=== PATIENT | male | born 1985 | race African-American/Black ===

== ENCOUNTER 2018-09-23 17:14 | Inpatient (IN) | payer MEDICAID, OTHER ==
[2018-09-23] MEDS ORDERED: ACETAMINOPHEN 325 MG TABLET PO ONE (18:28)
[2018-09-23] MEDS ORDERED: RINGERS SOLUTION,LACTATED 1,000 ML IV ONE ×2 (18:29→22:36)
--- NOTE | 2018-09-23 18:50 | RADIOLOGY REPORT (SQ) ---
EXAM DESCRIPTION: CHEST 2 VIEWS COMPLETED DATE/TIME: 09/23/2018 6:38 pm REASON FOR STUDY: fever, cough COMPARISON: None. EXAM PARAMETERS: NUMBER OF VIEWS: two views TECHNIQUE: Digital Frontal and Lateral radiographic views of the chest acquired. RADIATION DOSE: NA LIMITATIONS: none FINDINGS: LUNGS AND PLEURA: No opacities, masses or pneumothorax. No pleural effusion. MEDIASTINUM AND HILAR STRUCTURES: No masses or contour abnormalities. HEART AND VASCULAR STRUCTURES: Heart normal size. No evidence for failure. BONES: No acute findings. HARDWARE: None in the chest. OTHER: No other significant finding. IMPRESSION: NO ACUTE RADIOGRAPHIC FINDING IN THE CHEST. TECHNICAL DOCUMENTATION: JOB ID: [id number] [employer]- All Rights Reserved Reading location - IP/workstation name: [email or web address]
[2018-09-23] MEDS ORDERED: AMPICILLIN SOD/SULBACTAM 3 GM VIAL IV ONE (19:05)
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
[2018-09-23 19:27] LABS: VENOUS BLOOD BASE EXCESS 3.9 mmol/L; VENOUS BLOOD HCO3 29.2 mmol/L (20-32); VENOUS BLOOD PCO2 46.4 mmHg (35-63); VENOUS BLOOD PH 7.42 (7.30-7.42)
[2018-09-23 19:45] LABS: HEMATOCRIT 40.8 % (37.9-51.0); MEAN CORPUSCULAR HEMOGLOBIN 31.6 pg (27.0-33.4); MEAN CORPUSCULAR HGB CONC 34.3 g/dL (32.0-36.0); MEAN CORPUSCULAR VOLUME 92 fl (80-97); PLATELET COUNT 209 10^3/uL (150-450); RED BLOOD COUNT 4.43 10^6/uL (4.35-5.55); RED CELL DISTRIBUTION WIDTH 12.7 % (11.5-14.0); WHITE BLOOD COUNT 16.3 10^3/uL (4.0-10.5)
[2018-09-23 19:46] LABS: ALANINE AMINOTRANSFERASE 23 U/L (21-72); ALBUMIN 4.5 g/dL (3.5-5.0); ALKALINE PHOSPHATASE 75 U/L (38-126); ANION GAP 14 (5-19); ASPARTATE AMINO TRANSFERASE 20 U/L (17-59); BILIRUBIN,DIRECT 0.3 mg/dL (0.0-0.4); BILIRUBIN,TOTAL 1.4 mg/dL (0.2-1.3); BLOOD UREA NITROGEN 8 mg/dL (7-20); CALCIUM 9.9 mg/dL (8.4-10.2); CARBON DIOXIDE 29 mmol/L (22-30); CHLORIDE 97 mmol/L (98-107); GLUCOSE 251 mg/dL (75-110); POTASSIUM 4.2 mmol/L (3.6-5.0); TOTAL PROTEIN 7.2 g/dL (6.3-8.2)
[2018-09-23 20:06] LABS: ABSOLUTE LYMPHOCYTES# (MANUAL) 0.2 10^3/uL (0.5-4.7); ABSOLUTE MONOCYTES # (MANUAL) 1.1 10^3/uL (0.1-1.4); BAND NEUTROPHILS % (MANUAL) 3 % (3-5); BASOPHILS % (MANUAL) 0 % (0-2); EOSINOPHILS % (MANUAL) 0 % (0-6); LYMPHOCYTES % (MANUAL) 1 % (13-45); MONOCYTES % (MANUAL) 7 % (3-13); RBC MORPHOLOGY COMMENT NORMO-CYTIC/CHROMIC; SEGMENTED NEUTROPHILS % (MAN) 89 % (42-78); TOTAL CELLS COUNTED 100
[2018-09-23 20:07] LABS: PLATELET COMMENT ADEQUATE
--- NOTE | 2018-09-23 21:32 | RADIOLOGY REPORT (SQ) ---
EXAM DESCRIPTION: CT of the facial bones without IV contrast. CLINICAL HISTORY: 33 years Male Severe nasal swelling, fever COMPARISON: None TECHNIQUE: Axial images with IV contrast. Sagittal coronal reconstruction. 100 mL of Omnipaque 350 administered. This exam was performed according to our departmental dose-optimization program, which includes automated exposure control, adjustment of the mA and/or kV according to patient size and/or use of iterative reconstruction technique.. FINDINGS: There is minimal irregularity of the upper aspect of the right nasal bone more likely due to suture and not fracture. There is no obvious the destructive bone changes. CT does not evaluate well the nasal cartilage. There is diffuse soft tissue swelling peripheral as well as deep to the nasal bones and the nasal cartilage... The study is performed with IV contrast. There are relative peripheral areas of enhancement and central areas of lower density. Difficult to determine if the central low density represents pus or simple fluid/ mucus. There is moderate soft tissue swelling in the midline along the nasal septum. The nasal turbinates are not significantly enlarged. However there is some narrowing of the nasal cavity secondary to the midline soft tissue swelling. There is mild anterior ethmoid mucosal thickening. Posterior ethmoids are unremarkable. Minimal mucosal thickening in the maxillary and sphenoid sinuses. Frontal sinuses are unremarkable. Evaluation of the nasopharynx demonstrates nonspecific enlargement of the adenoids. Tonsils are not significantly enlarged incidental finding of several calcifications/stones in the left tonsil. Visualized brain tissue is unremarkable. The orbits are unremarkable. IMPRESSION: 1. Prominent soft tissue swelling peripheral and deep to the nasal bones and the nasal cartilage. Study performed with IV contrast and includes area of enhancement possibly normal or inflamed cartilage and areas of low density possibly pus or simple fluid/mucus. Soft tissue swelling extends in the midline into the nasal cavity. Most prominent anteriorly but causes soft tissue thickening adjacent to the nasal septum. The nasal turbinates are not enlarged. 2. Relative mild sinus disease. No obvious destructive bone changes. 3. Mild prominence of the adenoids.
[2018-09-23] MEDS ORDERED: VANCOMYCIN HCL INJ 1000 MG VIAL IV ONE (22:34)
[2018-09-23] MEDS ORDERED: DEXAMETHASONE SOD PHOS INJ 10 MG/1 ML VIAL IV ONE (22:36)
[2018-09-23] MEDS ORDERED: MUPIROCIN 2% OINTMENT 22 GM TP ONE (22:37)
[2018-09-23] MEDS ORDERED: KETOROLAC TROMETHAMINE INJ/PF 30 MG/1 ML SDV IV ONE (22:39)
[2018-09-24] MEDS ORDERED: DEXTROSE 40% GEL 15 GM TUBE PO PRN ×2 (00:55)
[2018-09-24] MEDS ORDERED: MAG HYDROX/AL HYDROX/SIMETH SUSP 30 ML UDCUP PO PRN (00:55)
[2018-09-24] MEDS ORDERED: ACETAMINOPHEN 650 MG SUPP.RECT PR PRN (00:55)
[2018-09-24] MEDS ORDERED: MAGNESIUM HYDROXIDE SUSP 30 ML UDCUP PO PRN (00:55)
[2018-09-24] MEDS ORDERED: GLUCAGON,HUMAN RECOMB 1 MG INJ SUBCUT PRN (00:55)
[2018-09-24] MEDS ORDERED: ONDANSETRON HCL INJ/PF 4 MG/2 ML SDV IV PRN (00:55)
[2018-09-24] MEDS ORDERED: DEXTROSE 50%-WATER 25 GM/50 ML DISP.SYRIN IV PRN ×2 (00:55)
[2018-09-24] MEDS ORDERED: MORPHINE SULFATE 10 MG/ML INJ IV PRN ×6 (01:01→17:26)
[2018-09-24] MEDS ORDERED: ACETAMINOPHEN 325 MG TABLET PO PRN (01:01)
[2018-09-24] MEDS ORDERED: HYDRALAZINE HCL INJ/PF 20 MG/1 ML SDV IV PRN (01:01)
[2018-09-24] MEDS ORDERED: MEROPENEM 1 GM VIAL IV PRN (01:04)
[2018-09-24] MEDS ORDERED: VANCOMYCIN HCL INJ 1000 MG VIAL IV PRN (01:20)
--- NOTE | 2018-09-24 02:33 | ADVANCED CARE ---
- Diagnosis (1) Nose cellulitis Diagnosis Current: Yes (2) SIRS (systemic inflammatory response syndrome) Diagnosis Current: Yes (3) Elevated temperature due to infection Diagnosis Current: Yes (4) Elevated lactic acid level Diagnosis Current: Yes (5) Facial pain, acute Diagnosis Current: Yes Attendance: The patient and myself Resuscitation Status: Full Code Discussion: Patient desires to continue being a full code for his resuscitation status in the event of any cardiac or pulmonary arrest that may occur during his hospital course. He has named Mercedes Morrison as his designated surrogate medical decision- maker. Care Planning Goals: 1. Patient remain a full CODE STATUS throughout this hospital course. 2. Mercedes Morrison is his designated surrogate medical decision maker. Document(s) Completed: Following entries will be made into the patient's permanent medical record and into his current medical record and orders via EMR entry: 1. Patient remain a full CODE STATUS throughout this hospital course. 2. Mercedes Morrison is his designated surrogate medical decision maker. Time Spent: 5 minutes
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
[2018-09-24] MEDS ORDERED: MEROPENEM 1 GM VIAL ONE (03:22)
[2018-09-24] MEDS: MEROPENEM 1 GM in NORMAL SALINE 50 ML IV SCH ×2 (03:45→09:52)
[2018-09-24] MEDS: DEXAMETHASONE SOD PHOS INJ 10 MG/1 ML VIAL IV SCH ×3 (03:46→11:20)
[2018-09-24] MEDS ORDERED: VANCOMYCIN HCL 1,000 MG in DEXTROSE 5%-WATER 250 ML IV ONE (06:00)
[2018-09-24] MEDS ORDERED: VANCOMYCIN HCL INJ 1000 MG VIAL ONE (06:07)
[2018-09-24] MEDS: HEPARIN SOD (PORCINE) 5,000 UNIT/ML 1 ML VIAL SUBCUT SCH ×3 (06:26→21:14)
[2018-09-24] MEDS: DOCUSATE SODIUM 100 MG CAPSULE PO SCH ×2 (09:23→17:31)
[2018-09-24] MEDS: FAMOTIDINE INJ/PF 20 MG/2 ML SDV IV SCH ×2 (09:51→21:14)
[2018-09-24] MEDS ORDERED: VANCOMYCIN HCL INJ 1000 MG VIAL IV SCH (10:00)
[2018-09-24] MEDS: MUPIROCIN 2% OINTMENT 22 GM TP SCH ×3 (10:29→17:05)
[2018-09-24] MEDS ORDERED: LIDOCAINE 2%/EPINEPHRINE INJ 1.7 ML CARTRIDGE ONE (11:01)
[2018-09-24] MEDS ORDERED: BUPIVACAINE HCL 0.5%/EPI 1:200000 INJ 1.8 ML CARTRIDGE ONE ×2 (11:01→13:18)
[2018-09-24] MEDS ORDERED: OXYMETAZOLINE HCL 0.05% NASAL SPRAY 15 ML BOTTLE ONE (11:01)
[2018-09-24] MEDS: AMPICILLIN SODIUM/SULBACTAM NA 3 GM in NORMAL SALINE 100 ML IV SCH ×3 (11:21→23:31)
[2018-09-24] MEDS ORDERED: SUCCINYLCHOLINE CHLORIDE INJ 200 MG/10 ML VIAL ONE (11:35)
[2018-09-24] MEDS ORDERED: VECURONIUM BROMIDE INJ 10 MG VIAL IV ONE (11:35)
[2018-09-24] MEDS ORDERED: GLYCOPYRROLATE 1 MG/5 ML VIAL ONE (11:35)
[2018-09-24] MEDS ORDERED: ONDANSETRON HCL INJ/PF 4 MG/2 ML SDV ONE (11:35)
[2018-09-24] MEDS ORDERED: LIDOCAINE 2% INJ-PF (100 MG/5 ML) SYRINGE ONE (11:54)
[2018-09-24] MEDS ORDERED: MIDAZOLAM 2 MG/2 ML INJ ONE (11:54)
[2018-09-24] MEDS ORDERED: PROPOFOL INJ 200 MG/20 ML VIAL IV ONE ×2 (11:54→15:02)
[2018-09-24] MEDS ORDERED: KETAMINE HCL INJ 500 MG/10 ML VIAL ONE (11:54)
[2018-09-24] MEDS ORDERED: FENTANYL CITRATE INJ/PF 250 MCG/5 ML AMPULE ONE (11:54)
[2018-09-24] MEDS ORDERED: AMPICILLIN SODIUM/SULBACTAM NA 2 GM in NORMAL SALINE 100 ML IV SCH (12:00)
[2018-09-24] MEDS ORDERED: AMPICILLIN SODIUM/SULBACTAM NA 3 GM in NORMAL SALINE 100 ML IV SCH (12:00)
[2018-09-24] MEDS ORDERED: BACITRACIN ZINC OINTMENT 15 GM ONE (12:40)
[2018-09-24] MEDS ORDERED: BACITRACIN INJ 50,000 UNIT VIAL ONE (12:40)
[2018-09-24] MEDS: VANCOMYCIN HCL 1,000 MG in DEXTROSE 5%-WATER 250 ML IV SCH ×2 (13:06→21:15)
[2018-09-24] MEDS ORDERED: DIPHENHYDRAMINE HCL 50 MG/ML VIAL IV PRN (14:13)
[2018-09-24] MEDS ORDERED: FENTANYL CITRATE INJ/PF 100 MCG/2 ML AMPUL IV PRN ×3 (14:13)
[2018-09-24] MEDS ORDERED: PROMETHAZINE HCL INJ 25 MG/1 ML VIAL IV PRN ×2 (14:13)
[2018-09-24] MEDS ORDERED: MEPERIDINE HCL/PF INJ 25 MG/1 ML DISP.SYRIN IV PRN (14:13)
[2018-09-24] MEDS ORDERED: FENTANYL CITRATE INJ/PF 100 MCG/2 ML AMPUL ONE (15:03)
[2018-09-24] MEDS: PHENOL/SODIUM PHENOLATE 100 SPRAY/177 ML BOTTLE PO PRN ×2 (16:03→17:37)
[2018-09-24] MEDS: RINGERS SOLUTION,LACTATED 1,000 ML IV PRN (16:55)
[2018-09-24] MEDS ORDERED: OXYCODONE-ACETAMINOPHEN 5-325 MG TABLET PO PRN (17:25)
--- NOTE | 2018-09-24 17:28 | Progress Note Acknowledgement ---
Progress Note Acknowledgement Progess Note Acknowledgement: I, the undersigned member of the medical staff with appropriate privileges and with supervisory authority over Nereyda Hernandez, a [facility] practice allied health professional, acknowledge that I have reviewed the progress notes entered on this patient, and in my professional judgment believe that the assessment made and/or any care evidenced was appropriate
--- NOTE | 2018-09-24 17:28 | PDOC PROGRESS REPORT ---
Subjective Progress Note for:: 09/24/18 Subjective:: The patient is a 33-year-old male with past medical history significant only for tobacco dependency who was admitted 09/23/18 for no cellulitis with potential abscess formation noted on CT scan. ENT has been consulted; plans for scope and possible I&D today. Patient was seen on morning rounds. He is found resting in bed comfortably on room air. He reports that his facial swelling and discomfort have decreased somewhat today. He does endorse a sore throat but without difficulty swallowing or speaking. He further denies fever, chills, chest pain, palpitations, dyspnea, cough, abdominal pain, nausea vomiting and diarrhea. He is somewhat anxious regarding planned procedure today but otherwise has no questions or concerns. No concerns per nursing. Reason For Visit: FACIAL CELLULITIS Physical Exam Vital Signs: Temp Pulse Resp BP Pulse Ox 99.6 F 74 18 137/73 H 95 09/24/18 02:14 09/24/18 02:14 09/24/18 02:14 09/24/18 02:14 09/24/18 02:14 Intake & Output 09/23/18 09/24/18 09/25/18 06:59 06:59 06:59 Intake Total 1050 Output Total 1550 Balance -500 Weight 74.7 kg General appearance: PRESENT: no acute distress, cooperative, well-developed, well-nourished Head exam: PRESENT: atraumatic, normocephalic, other - Mild erythema and +1 edema of the nose and perinasal area of the face. (+) tenderness to palpation. Nares are partially obstructed secondary to edema; though remain patent Eye exam: PRESENT: conjunctiva pink, EOMI, PERRLA. ABSENT: scleral icterus Ear exam: PRESENT: normal external ear exam Mouth exam: PRESENT: moist, tongue midline Throat exam: PRESENT: post pharyngeal erythema Neck exam: ABSENT: carotid bruit, JVD, lymphadenopathy, thyromegaly Respiratory exam: PRESENT: clear to auscultation saida. ABSENT: rales, rhonchi, wheezes Cardiovascular exam: PRESENT: RRR. ABSENT: diastolic murmur, rubs, systolic murmur Pulses: PRESENT: normal dorsalis pedis pul Vascular exam: PRESENT: normal capillary refill GI/Abdominal exam: PRESENT: normal bowel sounds, soft. ABSENT: distended, guarding, mass, organolmegaly, rebound, tenderness Rectal exam: PRESENT: deferred Extremities exam: PRESENT: full ROM. ABSENT: calf tenderness, clubbing, pedal edema Neurological exam: PRESENT: alert, awake, oriented to person, oriented to place, oriented to time, oriented to situation, CN II-XII grossly intact. ABSENT: motor sensory deficit Psychiatric exam: PRESENT: appropriate affect, normal mood. ABSENT: homicidal ideation, suicidal ideation Skin exam: PRESENT: dry, intact, warm. ABSENT: cyanosis, rash Results Laboratory Results: 09/23/18 19:05 09/23/18 19:05 09/23/18 09/23/18 09/23/18 19:05 19:05 19:05 WBC 16.3 H RBC 4.43 Hgb 14.0 Hct 40.8 MCV 92 MCH 31.6 MCHC 34.3 RDW 12.7 Plt Count 209 Seg Neutrophils % Not Reportable Lymphocytes % Not Reportable Monocytes % Not Reportable Eosinophils % Not Reportable Basophils % Not Reportable Absolute Neutrophils Not Reportable Absolute Lymphocytes Not Reportable Absolute Monocytes Not Reportable Absolute Eosinophils Not Reportable Absolute Basophils Not Reportable VBG pH VBG pCO2 VBG HCO3 VBG Base Excess Sodium 139.7 Potassium 4.2 Chloride 97 L Carbon Dioxide 29 Anion Gap 14 BUN 8 Creatinine 0.78 Est GFR ( Amer) > 60 Est GFR (Non-Af Amer) > 60 Glucose 251 H Lactic Acid 2.7 H Calcium 9.9 Total Bilirubin 1.4 H AST 20 ALT 23 Alkaline Phosphatase 75 Total Protein 7.2 Albumin 4.5 09/23/18 09/24/18 09/24/18 19:05 02:45 06:54 WBC RBC Hgb Hct MCV MCH MCHC RDW Plt Count Seg Neutrophils % Lymphocytes % Monocytes % Eosinophils % Basophils % Absolute Neutrophils Absolute Lymphocytes Absolute Monocytes Absolute Eosinophils Absolute Basophils VBG pH 7.42 VBG pCO2 46.4 VBG HCO3 29.2 VBG Base Excess 3.9 Sodium Potassium Chloride Carbon Dioxide Anion Gap BUN Creatinine Est GFR ( Amer) Est GFR (Non-Af Amer) Glucose Lactic Acid 1.9 1.3 Calcium Total Bilirubin AST ALT Alkaline Phosphatase Total Protein Albumin Impressions: Chest X-Ray 09/23/18 18:28 IMPRESSION: NO ACUTE RADIOGRAPHIC FINDING IN THE CHEST. Facial Bones CT 09/23/18 19:00 IMPRESSION: 1. Prominent soft tissue swelling peripheral and deep to the nasal bones and the nasal cartilage. Study performed with IV contrast and includes area of enhancement possibly normal or inflamed cartilage and areas of low density possibly pus or simple fluid/mucus. Soft tissue swelling extends in the midline into the nasal cavity. Most prominent anteriorly but causes soft tissue thickening adjacent to the nasal septum. The nasal turbinates are not enlarged. 2. Relative mild sinus disease. No obvious destructive bone changes. 3. Mild prominence of the adenoids. Assessment and Plan - Diagnosis (1) Nose cellulitis Is this a current diagnosis for this admission?: Yes Plan: Blood cultures are positive for gram-positive cocci (2/4 bottles). Wound cultures are pending. Patient is admitted to the medical floor. He has been empirically placed on IV vancomycin and Unasyn. ENT is consulted; plans for I&D today. Analgesics as needed. (2) Bacteremia Is this a current diagnosis for this admission?: Yes Plan: Blood cultures are positive for gram-positive cocci in 2 of 4 bottles. We will repeat blood cultures tomorrow with a.m. lab work. Wound cultures are pending. Continue IV vancomycin and Unasyn. (3) Hypertension Is this a current diagnosis for this admission?: Yes Plan: Patient denies known history of hypertension; found to have blood pressures of 148/85. Possibly related to pain. Analgesics as needed. Continue to monitor for persistently elevated blood pressures indicating need for antihypertensive therapy. (4) Facial pain, acute Is this a current diagnosis for this admission?: Yes Plan: Tylenol or Motrin and oxycodone 5/325 as needed for pain. IV morphine for breakthrough pain. (5) Sepsis Qualifiers: Sepsis type: sepsis due to unspecified organism Qualified Code(s): A41.9 - Sepsis, unspecified organism Is this a current diagnosis for this admission?: Yes Plan: Resolved. Sepsis due to gram-positive cocci, present on admission, evidenced by Leukocytosis, elevated lactic acid, elevated bilirubin, fever, tachycardia, and nasal cellulitis with potential abscesses noted on facial CT. Cultures and antibiotics as above. - Time Time Spent with patient: 25-34 minutes Medications reviewed and adjusted accordingly: Yes Anticipated discharge: Home Within: within 72 hours - pending blood culture results
[2018-09-24] MEDS: OXYCODONE-ACETAMINOPHEN 5-325 MG TABLET PO PRN (20:28)
[2018-09-25] MEDS: OXYCODONE-ACETAMINOPHEN 5-325 MG TABLET PO PRN ×4 (04:10→21:24)
[2018-09-25] MEDS: AMPICILLIN SODIUM/SULBACTAM NA 3 GM in NORMAL SALINE 100 ML IV SCH ×4 (05:16→23:16)
[2018-09-25] MEDS: HEPARIN SOD (PORCINE) 5,000 UNIT/ML 1 ML VIAL SUBCUT SCH ×3 (05:18→21:29)
[2018-09-25] MEDS: VANCOMYCIN HCL 1,000 MG in DEXTROSE 5%-WATER 250 ML IV SCH (06:36)
[2018-09-25 07:01] LABS: HEMATOCRIT 38.6 % (37.9-51.0); HEMOGLOBIN 13.2 g/dL (13.5-17.0); MEAN CORPUSCULAR HEMOGLOBIN 31.6 pg (27.0-33.4); MEAN CORPUSCULAR HGB CONC 34.2 g/dL (32.0-36.0); MEAN CORPUSCULAR VOLUME 92 fl (80-97); PLATELET COUNT 264 10^3/uL (150-450); RED BLOOD COUNT 4.17 10^6/uL (4.35-5.55); RED CELL DISTRIBUTION WIDTH 12.7 % (11.5-14.0); WHITE BLOOD COUNT 16.3 10^3/uL (4.0-10.5)
[2018-09-25 07:21] LABS: ANION GAP 15 (5-19); BLOOD UREA NITROGEN 18 mg/dL (7-20); CALCIUM 9.8 mg/dL (8.4-10.2); CARBON DIOXIDE 25 mmol/L (22-30); CHLORIDE 99 mmol/L (98-107); GLUCOSE 155 mg/dL (75-110); POTASSIUM 4.3 mmol/L (3.6-5.0)
[2018-09-25 07:25] LABS: VANCOMYCIN,TROUGH 6.4 ug/mL (5.0-20.0)
[2018-09-25] MEDS: FAMOTIDINE INJ/PF 20 MG/2 ML SDV IV SCH ×2 (09:26→21:23)
[2018-09-25] MEDS: RINGERS SOLUTION,LACTATED 1,000 ML IV PRN (09:26)
[2018-09-25] MEDS: DOCUSATE SODIUM 100 MG CAPSULE PO SCH ×2 (09:27→17:12)
[2018-09-25] MEDS: MUPIROCIN 2% OINTMENT 22 GM TP SCH ×2 (09:30→17:12)
[2018-09-25] MEDS: VANCOMYCIN HCL 1,500 MG in DEXTROSE 5%-WATER 250 ML IV SCH ×2 (14:53→21:25)
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
[2018-09-25] MEDS: AMLODIPINE BESYLATE 5 MG TABLET PO SCH (23:16)
[2018-09-26] MEDS: OXYCODONE-ACETAMINOPHEN 5-325 MG TABLET PO PRN ×4 (02:28→17:52)
[2018-09-26 05:07] LABS: HEMATOCRIT 37.7 % (37.9-51.0); HEMOGLOBIN 12.9 g/dL (13.5-17.0); MEAN CORPUSCULAR HEMOGLOBIN 31.6 pg (27.0-33.4); MEAN CORPUSCULAR HGB CONC 34.2 g/dL (32.0-36.0); MEAN CORPUSCULAR VOLUME 93 fl (80-97); PLATELET COUNT 255 10^3/uL (150-450); RED BLOOD COUNT 4.07 10^6/uL (4.35-5.55); RED CELL DISTRIBUTION WIDTH 12.8 % (11.5-14.0); WHITE BLOOD COUNT 10.1 10^3/uL (4.0-10.5)
[2018-09-26] MEDS: AMPICILLIN SODIUM/SULBACTAM NA 3 GM in NORMAL SALINE 100 ML IV SCH ×3 (05:16→17:52)
[2018-09-26] MEDS: HEPARIN SOD (PORCINE) 5,000 UNIT/ML 1 ML VIAL SUBCUT SCH ×3 (05:20→21:33)
[2018-09-26] MEDS: VANCOMYCIN HCL 1,500 MG in DEXTROSE 5%-WATER 250 ML IV SCH ×3 (06:31→21:33)
[2018-09-26] MEDS: DOCUSATE SODIUM 100 MG CAPSULE PO SCH ×2 (09:39→17:51)
[2018-09-26] MEDS: FAMOTIDINE INJ/PF 20 MG/2 ML SDV IV SCH ×2 (09:39→21:33)
[2018-09-26] MEDS: MUPIROCIN 2% OINTMENT 22 GM TP SCH ×2 (09:39→17:53)
[2018-09-26] MEDS: IBUPROFEN 800 MG TABLET PO PRN ×2 (09:48→17:58)
[2018-09-26 14:21] LABS: VANCOMYCIN,TROUGH 14.2 ug/mL (5.0-20.0)
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
[2018-09-26] MEDS: AMLODIPINE BESYLATE 5 MG TABLET PO SCH (21:33)
[2018-09-27] MEDS: OXYCODONE-ACETAMINOPHEN 5-325 MG TABLET PO PRN ×4 (00:25→17:30)
[2018-09-27] MEDS: IBUPROFEN 800 MG TABLET PO PRN ×3 (03:31→20:01)
[2018-09-27] MEDS: VANCOMYCIN HCL 1,500 MG in DEXTROSE 5%-WATER 250 ML IV SCH ×3 (06:16→22:06)
[2018-09-27] MEDS: HEPARIN SOD (PORCINE) 5,000 UNIT/ML 1 ML VIAL SUBCUT SCH ×3 (06:16→22:06)
[2018-09-27] MEDS: MUPIROCIN 2% OINTMENT 22 GM TP SCH ×2 (10:29→17:30)
[2018-09-27] MEDS: FAMOTIDINE INJ/PF 20 MG/2 ML SDV IV SCH ×2 (10:29→22:06)
[2018-09-27] MEDS: DOCUSATE SODIUM 100 MG CAPSULE PO SCH ×2 (10:29→17:25)
--- NOTE | 2018-09-27 17:38 | Progress Note ---
Provider Note Provider Note: ID Telephone Consultation Note Pt not seen or examined. Asked to review patient's chart and spoke briefly with Nereyda Hernandez NP, regarding the patient. Mr. Hare is a 33 year old admitted on 09/23 with 3 day history of progressively worsening facial swelling, particularly involving his nose, with local pain, er ythema and increased warmth developing with associated fever and chills. This developed following an ulcer to his L nasal mucosa that he picked at. On exam he was febrile to 101.7 F and noted to have erythema and edema of the nose and perinasal aspects of the face with tenderness to palpation, no murmur, and no other skin lesios noted. CT of the facial bones showed prominent swelling peripheral and deep to the nasal bones and cartilage most prominent anteriorly. CXR did not show an acute radiographic finding. His blood cultures on admission grew MRSA in both sets, as did cultures from the nose. He was seen by ENT and has had debridement. Repeat blood cultures on 09/25 have no growth x 48h. The patient defervesced after admission and has had no recurrent fever. Impression/Recommendations MRSA bacteremia - To have uncomplicated Staph aureus bacteremia, the patient would need to meet all of the following criteria No persistent bacteremia or fever (defervesce and negative repeat blood cultures within 72 and 96h, respectively) No evidence of metastatic infection or endocarditis No implanted prostheses (e.g. arthroplasty, heart valve) Generally, a shorter course might be more appropriate in the setting of an identifiable and removable source of bacteremia, such as an infected IV line, and if there is nosocomial rather than community onset bacteremia. - The patient appears to be a candidate for two weeks of treatment, starting from the date of negative blood cx on 09/25 (anticipated end date 10/09), assuming the TTE is negative and good quality study and there are no other complications that develop that suggest metastatic infection (e.g. new onset of ocular palsy to suggest cavernous sinus septic thrombosis for example, due to retrograde seeding) - The standard of care for treatment of MRSA bacteremia has generally involved either IV vancomycin (dose with assistance of a clinical pharmacist to achieve goal troughs of 15-20) or IV daptomycin (500 mg daily based on his weight) but if PICC line placement is not an option, consider linezolid 600 mg PO BID. Bactrim or clindamycin could be considered if there is no other choice, but clindamycin has been associated with high risk of treatment failure or relapse if used for Staph aureus endovascular infection or bacteremia, and comparisons of vancomycin versus Bactrim for treatment of serious MRSA infection could not show non-inferiority of Bactrim with greater differences seen in use for bacteremia. I do not think clindamycin or Bactrim are good options if vancomycin, daptomycin or linezolid can be used instead. Kendall Garcia MD [facility] pager [phone]
[2018-09-27] MEDS: BUTALB/ACETAMINOPHEN/CAFFEINE 1 TAB EACH PO PRN (20:57)
[2018-09-27] MEDS ORDERED: OXYCODONE-ACETAMINOPHEN 5-325 MG TABLET PO PRN (21:35)
--- NOTE | 2018-09-27 21:35 | PDOC PROGRESS REPORT ---
Subjective Progress Note for:: 09/27/18 Subjective:: The patient is a 33-year-old male with past medical history significant only for tobacco dependency who was admitted 09/23/18 for no cellulitis with potential abscess formation noted on CT scan. ENT has been consulted; POD #2 I&D with surgical drains in place. Patient was seen on afternoon rounds. He was found resting in bed comfortably on room air. He reports continued nasal/facial tenderness, though significantly improved and well controlled on current pain regiment. Edema has resolved. He does report headache last night that was no responsive to tylenol. He denies fever, chills, body aches, chest pain, palpitations, dyspnea, orthopnea, abdominal pain, nausea and vomiting. Has a good appetite. He has no other questions or concerns. No concerns per nursing. Reason For Visit: FACIAL CELLULITIS Physical Exam Vital Signs: Temp Pulse Resp BP Pulse Ox 98.2 F 61 17 148/94 H 100 09/27/18 18:04 09/27/18 18:04 09/27/18 18:04 09/27/18 18:04 09/27/18 18:04 Intake & Output 09/26/18 09/27/18 09/28/18 06:59 06:59 06:59 Intake Total 4520 2810 750 Output Total 1250 Balance 3270 2810 750 Weight 76.2 kg General appearance: PRESENT: no acute distress, well-developed, well-nourished Head exam: PRESENT: atraumatic, normocephalic, other - bilateral surgical drains noted each nare Eye exam: PRESENT: conjunctiva pink, EOMI, PERRLA. ABSENT: scleral icterus Ear exam: PRESENT: normal external ear exam Mouth exam: PRESENT: moist, tongue midline Neck exam: ABSENT: carotid bruit, JVD, lymphadenopathy, thyromegaly Respiratory exam: PRESENT: clear to auscultation saida, symmetrical, unlabored. ABSENT: rales, rhonchi, wheezes Cardiovascular exam: PRESENT: RRR. ABSENT: diastolic murmur, rubs, systolic murmur Pulses: PRESENT: normal dorsalis pedis pul Vascular exam: PRESENT: normal capillary refill GI/Abdominal exam: PRESENT: normal bowel sounds, soft. ABSENT: distended, guarding, mass, organolmegaly, rebound, tenderness Rectal exam: PRESENT: deferred Extremities exam: PRESENT: full ROM. ABSENT: calf tenderness, clubbing, pedal edema Neurological exam: PRESENT: alert, awake, oriented to person, oriented to place, oriented to time, oriented to situation, CN II-XII grossly intact. ABSENT: motor sensory deficit Psychiatric exam: PRESENT: appropriate affect, normal mood. ABSENT: homicidal ideation, suicidal ideation Skin exam: PRESENT: dry, intact, warm. ABSENT: cyanosis, rash Results Laboratory Results: 09/26/18 04:46 09/25/18 06:30 09/23/18 19:05 Blood Blood Culture - Final Mrsa (Meth Resis Staph Aureus) 09/23/18 20:30 Blood Blood Culture - Final Mrsa (Meth Resis Staph Aureus) Impressions: Chest X-Ray 09/23/18 18:28 IMPRESSION: NO ACUTE RADIOGRAPHIC FINDING IN THE CHEST. Facial Bones CT 09/23/18 19:00 IMPRESSION: 1. Prominent soft tissue swelling peripheral and deep to the nasal bones and the nasal cartilage. Study performed with IV contrast and includes area of enhancement possibly normal or inflamed cartilage and areas of low density possibly pus or simple fluid/mucus. Soft tissue swelling extends in the midline into the nasal cavity. Most prominent anteriorly but causes soft tissue thickening adjacent to the nasal septum. The nasal turbinates are not enlarged. 2. Relative mild sinus disease. No obvious destructive bone changes. 3. Mild prominence of the adenoids. Assessment and Plan - Diagnosis (1) Nose cellulitis Is this a current diagnosis for this admission?: Yes Plan: Now POD # 3 surgical I&D by ENT. Blood cultures are positive for MDR MRSA. Repeat cultures (09/25/18) are negative at 48 hrs. Multiple Wound cultures growing MDR MRSA. Patient is admitted to the medical floor. He has been empirically placed on IV vancomycin; will discontinue Unasyn today as cultures and sensitivities are now available. ENT is consulted; discussed with Dr. Jo yesterday. Drains to be removed on Sunday, patient has a follow up appointment in the office scheduled. Should he remain inpatient 2/2 bacteremia, will need to call Dr. Garcia (who will be sanitation supervisor at that time) Sunday morning so that in-house follow up can be arranged. Analgesics as needed. (2) Bacteremia Is this a current diagnosis for this admission?: Yes Plan: Blood cultures are positive for MDR MRSA (2/4 bottles). Repeat cultures (09/25/18) negative at 24 hours. Multiple Wound cultures growing MDR MRSA. Echocardiogram completed; report pending. Discussed with patient possible need for [facility] antibiotics (anticipate 2 weeks). He does confirm a history of MRSA but denies IV drug use. No heart valves or orthopedic prosthetics present. Discussed w/ Dr. Garcia, ID, today. Recommends 2 weeks IV Vancomycin; end date 10/09 pending echo results. Discharge planning is consulted. (3) Hypertension Is this a current diagnosis for this admission?: Yes Plan: Improved HTN with start of amlodipine Will start amlodipine 5 mg qHS. Analgesics as needed. (4) Facial pain, acute Is this a current diagnosis for this admission?: Yes Plan: Secondary to #1 Tylenol or Motrin and oxycodone 5/325 as needed for pain. (5) Sepsis Qualifiers: Sepsis type: sepsis due to unspecified organism Qualified Code(s): A41.9 - Sepsis, unspecified organism Is this a current diagnosis for this admission?: Yes Plan: Resolved. Sepsis due to gram-positive cocci, present on admission, evidenced by Leukocytosis, elevated lactic acid, elevated bilirubin, fever, tachycardia, and nasal cellulitis with potential abscesses noted on facial CT. Cultures and antibiotics as above. (6) Head ache Is this a current diagnosis for this admission?: Yes Plan: Possibly rebound r/t oxycodone use vs sinus r/t facial cellutlits. Encouraged use of tylenol or motrin for pain. Will trial fiorecet. Begin reducing oxycode dose/frequency. - Time Time Spent with patient: 15-24 minutes Medications reviewed and adjusted accordingly: Yes Anticipated discharge: Home Within: Other - 10/09/18
[2018-09-27] MEDS: AMLODIPINE BESYLATE 5 MG TABLET PO SCH (22:06)
[2018-09-28] MEDS: IBUPROFEN 800 MG TABLET PO PRN ×3 (03:12→22:25)
[2018-09-28] MEDS: BUTALB/ACETAMINOPHEN/CAFFEINE 1 TAB EACH PO PRN ×2 (03:12→13:08)
[2018-09-28] MEDS: VANCOMYCIN HCL 1,500 MG in DEXTROSE 5%-WATER 250 ML IV SCH ×3 (06:16→22:25)
[2018-09-28] MEDS: HEPARIN SOD (PORCINE) 5,000 UNIT/ML 1 ML VIAL SUBCUT SCH ×3 (06:16→22:25)
[2018-09-28] MEDS: DOCUSATE SODIUM 100 MG CAPSULE PO SCH ×2 (10:07→18:23)
[2018-09-28] MEDS: MUPIROCIN 2% OINTMENT 22 GM TP SCH ×2 (10:08→18:48)
[2018-09-28] MEDS: FAMOTIDINE INJ/PF 20 MG/2 ML SDV IV SCH ×2 (10:08→22:25)
[2018-09-28] MEDS: OXYCODONE-ACETAMINOPHEN 5-325 MG TABLET PO PRN ×2 (13:47→22:26)
--- NOTE | 2018-09-28 14:55 | PDOC PROGRESS REPORT ---
Subjective Progress Note for:: 09/28/18 Subjective:: The patient is a 33-year-old male with past medical history significant only for tobacco dependency who was admitted 09/23/18 for no cellulitis with potential abscess formation noted on CT scan. ENT has been consulted; s/p I&D with surgical drains in place. Patient was seen on morning rounds. He was found resting in bed comfortably on room air. He reports continued nasal/facial tenderness, though significantly improved and well controlled on current pain regiment. Edema has resolved. He reports headache responded well to fiorecet; discussed rebound headache w/ oxycodone use. He denies fever, chills, body aches, chest pain, palpitations, dyspnea, orthopnea, abdominal pain, nausea and vomiting. Has a good appetite. He has no other questions or concerns. No concerns per nursing. Reason For Visit: FACIAL CELLULITIS Physical Exam Vital Signs: Temp Pulse Resp BP Pulse Ox 97.8 F 60 19 135/88 H 97 09/28/18 07:55 09/28/18 07:55 09/28/18 07:55 09/28/18 07:55 09/28/18 07:55 Intake & Output 09/27/18 09/28/18 09/29/18 06:59 06:59 06:59 Intake Total 2810 1240 250 Balance 2810 1240 250 Weight 76.2 kg General appearance: PRESENT: no acute distress, cooperative, well-developed, well-nourished Head exam: PRESENT: atraumatic, normocephalic, other - bilateral nasal drains Eye exam: PRESENT: conjunctiva pink, EOMI, PERRLA. ABSENT: scleral icterus Ear exam: PRESENT: normal external ear exam Mouth exam: PRESENT: moist, tongue midline Neck exam: ABSENT: carotid bruit, JVD, lymphadenopathy, thyromegaly Respiratory exam: PRESENT: clear to auscultation saida. ABSENT: rales, rhonchi, wheezes Cardiovascular exam: PRESENT: RRR. ABSENT: diastolic murmur, rubs, systolic murmur Pulses: PRESENT: normal dorsalis pedis pul Vascular exam: PRESENT: normal capillary refill GI/Abdominal exam: PRESENT: normal bowel sounds, soft. ABSENT: distended, guarding, mass, organolmegaly, rebound, tenderness Rectal exam: PRESENT: deferred Extremities exam: PRESENT: full ROM. ABSENT: calf tenderness, clubbing, pedal edema Musculoskeletal exam: PRESENT: ambulatory Neurological exam: PRESENT: alert, awake, oriented to person, oriented to place, oriented to time, oriented to situation, CN II-XII grossly intact. ABSENT: motor sensory deficit Psychiatric exam: PRESENT: appropriate affect, normal mood. ABSENT: homicidal ideation, suicidal ideation Skin exam: PRESENT: dry, intact, warm. ABSENT: cyanosis, rash Results Laboratory Results: 09/26/18 04:46 09/25/18 06:30 Impressions: Chest X-Ray 09/23/18 18:28 IMPRESSION: NO ACUTE RADIOGRAPHIC FINDING IN THE CHEST. Facial Bones CT 09/23/18 19:00 IMPRESSION: 1. Prominent soft tissue swelling peripheral and deep to the nasal bones and the nasal cartilage. Study performed with IV contrast and includes area of enhancement possibly normal or inflamed cartilage and areas of low density possibly pus or simple fluid/mucus. Soft tissue swelling extends in the midline into the nasal cavity. Most prominent anteriorly but causes soft tissue thickening adjacent to the nasal septum. The nasal turbinates are not enlarged. 2. Relative mild sinus disease. No obvious destructive bone changes. 3. Mild prominence of the adenoids. Assessment and Plan - Diagnosis (1) Nose cellulitis Is this a current diagnosis for this admission?: Yes Plan: Now s/p surgical I&D by ENT. Blood cultures are positive for MDR MRSA. Repeat cultures (09/25/18) are negative at 72 hrs. Multiple Wound cultures growing MDR MRSA. Patient is admitted to the medical floor. Continue IV vancomycin ENT is consulted; discussed with Dr. Jo. Drains to be removed on Sunday, patient has a follow up appointment in the office scheduled. Should he remain inpatient 2/2 bacteremia, will need to call Dr. Garcia (who will be java j2ee application developer at that time) Sunday morning so that in-house follow up can be arranged. Analgesics as needed. (2) Bacteremia Is this a current diagnosis for this admission?: Yes Plan: Blood cultures are positive for MDR MRSA (2/4 bottles). Repeat cultures (09/25/18) negative at 72 hours. Multiple Wound cultures growing MDR MRSA. Echocardiogram completed; report pending. Discussed with patient possible need for terminal clerk antibiotics (anticipate 2 weeks). He does confirm a history of MRSA but denies IV drug use. No heart valves or orthopedic prosthetics present. Patient did initially present in [facility] custody; have asked d/c planning to check into possible drug related charges prior to offering home infusion therapy. Discussed w/ Dr. Garcia, [facility]. Recommends 2 weeks IV Vancomycin or Daptomycin; end date 10/09 pending echo results. Continue IV Vanc. Discharge planning is consulted. (3) Hypertension Is this a current diagnosis for this admission?: Yes Plan: Improved HTN with start of amlodipine Continue amlodipine 10 mg qHS. Analgesics as needed. (4) Facial pain, acute Is this a current diagnosis for this admission?: Yes Plan: Secondary to #1 Tylenol or Motrin and oxycodone 5/325 as needed for pain. (5) Sepsis Qualifiers: Sepsis type: sepsis due to unspecified organism Qualified Code(s): A41.9 - Sepsis, unspecified organism Is this a current diagnosis for this admission?: Yes Plan: Resolved. Sepsis due to gram-positive cocci, present on admission, evidenced by Leukocytosis, elevated lactic acid, elevated bilirubin, fever, tachycardia, and nasal cellulitis with potential abscesses noted on facial CT. Cultures and antibiotics as above. (6) Head ache Is this a current diagnosis for this admission?: Yes Plan: Possibly rebound r/t oxycodone use vs sinus r/t facial cellutlits. Encouraged use of tylenol or motrin for pain. As needed fiorecet. Begin reducing oxycode dose/frequency. - Time Time Spent with patient: 15-24 minutes Medications reviewed and adjusted accordingly: Yes
[2018-09-28] MEDS: LACTOBACILLUS ACIDOPHILUS 250 MG TAB PO SCH (18:48)
[2018-09-28] MEDS ORDERED: AMLODIPINE BESYLATE 5 MG TABLET PO SCH (22:00)
[2018-09-28] MEDS: AMLODIPINE BESYLATE 10 MG TABLET PO SCH (22:27)
[2018-09-29] MEDS: VANCOMYCIN HCL 1,500 MG in DEXTROSE 5%-WATER 250 ML IV SCH ×3 (05:02→22:33)
[2018-09-29] MEDS: HEPARIN SOD (PORCINE) 5,000 UNIT/ML 1 ML VIAL SUBCUT SCH ×3 (05:03→22:34)
[2018-09-29] MEDS: FAMOTIDINE INJ/PF 20 MG/2 ML SDV IV SCH ×2 (09:45→22:34)
[2018-09-29] MEDS: MUPIROCIN 2% OINTMENT 22 GM TP SCH ×2 (09:46→19:50)
[2018-09-29] MEDS: DOCUSATE SODIUM 100 MG CAPSULE PO SCH ×2 (09:46→19:42)
[2018-09-29] MEDS: LACTOBACILLUS ACIDOPHILUS 250 MG TAB PO SCH ×2 (09:46→19:42)
[2018-09-29] MEDS: OXYCODONE-ACETAMINOPHEN 5-325 MG TABLET PO PRN ×2 (13:17→19:54)
[2018-09-29] MEDS: BUTALB/ACETAMINOPHEN/CAFFEINE 1 TAB EACH PO PRN ×2 (16:11→22:41)
--- NOTE | 2018-09-29 16:28 | PDOC PROGRESS REPORT ---
Subjective Progress Note for:: 09/29/18 Subjective:: The patient is a 33-year-old male with past medical history significant only for tobacco dependency who was admitted 09/23/18 for no cellulitis with potential abscess formation noted on CT scan. ENT has been consulted; s/p I&D with surgical drains in place. Patient was seen on morning rounds. He was found resting in bed comfortably on room air. He reports continued nasal/facial tenderness, though continues to improve. Edema has resolved. He reports headache responded well to fiorecet; discussed rebound headache w/ oxycodone use. He denies fever, chills, body aches, chest pain, palpitations, dyspnea, orthopnea, abdominal pain, nausea and vomiting. Has a good appetite. He has no other questions or concerns. No concerns per nursing. Reason For Visit: FACIAL CELLULITIS Physical Exam Vital Signs: Temp Pulse Resp BP Pulse Ox 98.2 F 64 16 152/92 H 100 09/29/18 11:45 09/29/18 11:45 09/29/18 11:45 09/29/18 11:45 09/29/18 11:45 Intake & Output 09/28/18 09/29/18 09/30/18 06:59 06:59 06:59 Intake Total 1240 1940 840 Balance 1240 1940 840 Weight 76.2 kg General appearance: PRESENT: no acute distress, cooperative, well-developed, well-nourished Head exam: PRESENT: atraumatic, normocephalic, other - bilateral nasal drains Eye exam: PRESENT: conjunctiva pink, EOMI, PERRLA. ABSENT: scleral icterus Ear exam: PRESENT: normal external ear exam Mouth exam: PRESENT: moist, tongue midline Neck exam: ABSENT: carotid bruit, JVD, lymphadenopathy, thyromegaly Respiratory exam: PRESENT: clear to auscultation saida, symmetrical, unlabored. ABSENT: rales, rhonchi, wheezes Cardiovascular exam: PRESENT: RRR, +S1, +S2. ABSENT: diastolic murmur, rubs, systolic murmur Pulses: PRESENT: normal dorsalis pedis pul Vascular exam: PRESENT: normal capillary refill GI/Abdominal exam: PRESENT: normal bowel sounds, soft. ABSENT: distended, guarding, mass, organolmegaly, rebound, tenderness Rectal exam: PRESENT: deferred Extremities exam: PRESENT: full ROM. ABSENT: calf tenderness, clubbing, pedal edema Neurological exam: PRESENT: alert, awake, oriented to person, oriented to place, oriented to time, oriented to situation, CN II-XII grossly intact. ABSENT: motor sensory deficit Psychiatric exam: PRESENT: appropriate affect, normal mood. ABSENT: homicidal ideation, suicidal ideation Skin exam: PRESENT: dry, intact, warm. ABSENT: cyanosis, rash Results Laboratory Results: 09/26/18 04:46 09/25/18 06:30 Impressions: Chest X-Ray 09/23/18 18:28 IMPRESSION: NO ACUTE RADIOGRAPHIC FINDING IN THE CHEST. Facial Bones CT 09/23/18 19:00 IMPRESSION: 1. Prominent soft tissue swelling peripheral and deep to the nasal bones and the nasal cartilage. Study performed with IV contrast and includes area of enhancement possibly normal or inflamed cartilage and areas of low density possibly pus or simple fluid/mucus. Soft tissue swelling extends in the midline into the nasal cavity. Most prominent anteriorly but causes soft tissue thickening adjacent to the nasal septum. The nasal turbinates are not enlarged. 2. Relative mild sinus disease. No obvious destructive bone changes. 3. Mild prominence of the adenoids. Assessment and Plan - Diagnosis (1) Nose cellulitis Is this a current diagnosis for this admission?: Yes Plan: Now s/p surgical I&D by ENT. Blood cultures are positive for MDR MRSA. Repeat cultures (09/25/18) are negative at 4 days. Multiple Wound cultures growing MDR MRSA. Patient is admitted to the medical floor. Continue IV vancomycin ENT is consulted; discussed with Dr. Jo. Drains to be removed on Sunday, patient has a follow up appointment in the office scheduled. Should he remain inpatient 2/2 bacteremia, will need to call Dr. Garcia (who will be university relations recruiter at that time) Sunday morning so that in-house follow up can be arranged. Analgesics as needed. (2) Bacteremia Is this a current diagnosis for this admission?: Yes Plan: Blood cultures are positive for MDR MRSA (2/4 bottles). Repeat cultures (09/25/18) negative at 4 days Multiple Wound cultures growing MDR MRSA. Echocardiogram completed; report pending. He does confirm a history of MRSA but denies IV drug use. No heart valves or orthopedic prosthetics present. Patient did initially present in [facility] custody. D/c planning reports patient does have previous drug related charges; therefoer will need to keep in-house for completion of antibiotic therapy. Discussed w/ ADELA Goodwin. Recommends 2 weeks IV Vancomycin or Daptomycin; end date 10/09 pending echo results. Continue IV Vanc. Discharge planning is consulted. (3) Hypertension Is this a current diagnosis for this admission?: Yes Plan: Improved HTN with start of amlodipine Continue amlodipine 10 mg qHS. Analgesics as needed. (4) Facial pain, acute Is this a current diagnosis for this admission?: Yes Plan: Secondary to #1 Tylenol or Motrin for pain Oxycodone 5/325 q6hp as needed for pain. (5) Sepsis Qualifiers: Sepsis type: sepsis due to unspecified organism Qualified Code(s): A41.9 - Sepsis, unspecified organism Is this a current diagnosis for this admission?: Yes Plan: Resolved. Sepsis due to gram-positive cocci, present on admission, evidenced by Leukocytosis, elevated lactic acid, elevated bilirubin, fever, tachycardia, and nasal cellulitis with potential abscesses noted on facial CT. Cultures and antibiotics as above. (6) Head ache Is this a current diagnosis for this admission?: Yes Plan: Possibly rebound r/t oxycodone use vs sinus r/t facial cellutlits. Encouraged use of tylenol or motrin for pain. As needed fiorecet. Begin reducing oxycode dose/frequency. - Time Time Spent with patient: Less than 15 minutes Medications reviewed and adjusted accordingly: Yes Anticipated discharge: Home Within: Other - 10/09/18 - Plan Summary Plan Summary: Remain inpatient for IV Vancomycin for treatment of MRSA bacteremia; end date 10/09/18
--- NOTE | 2018-09-29 17:52 | XCELERA REPORT ---
[address] [address] Transthoracic Echocardiogram Report Name: VERONICA GORDON Age: 33 yrs Gender: Male : 1985 Patient Status: Inpatient Patient Location: [address] [place], [place] [id number] Study Date: 09/27/2018 01:36 PM Height: 70 in Weight: 167 lb BSA: 1.9 m2 Procedure: A two-dimensional transthoracic echocardiogram with color flow and Doppler was performed. The study was technically difficult with many images being suboptimal in quality. Reason For Study: MRSA bacteremia; eval for endocarditis History: MRSA bacteremia; eval for endocarditis. Ordering Physician: DARIUS CHOI Performed By: Ragini Mendez Interpretation Summary REcommen JOE. MRSA bacteremia; eval for endocarditis The left ventricle is normal in size. There is normal left ventricular wall thickness. LV EF is 65%.% Left ventricular systolic function is normal. Doppler measurements suggest normal left ventricular diastolic function The left ventricular wall motion is normal. There is no thrombus. No ASD,VSD . or PFO. The right ventricle is grossly normal size. The right ventricle is not well visualized secondary to technical limitations The right atrium is normal. The left atrial size is normal. There is no evidence of mitral valve prolapse. There is no mitral valve stenosis. There is no tricuspid stenosis. There is a mild amount of mitral regurgitation There is no aortic valvular vegetation. There is no aortic valve stenosis No aortic regurgitation is present. There is a mild amount of tricuspid regurgitation There is mild pulmonary hypertension by echo RVSP is 40 t0 45 mmof Hg , with RA mean of 5 to 20. There is no pulmonic valvular stenosis. There is no pulmonic valvular regurgitation. The aortic root is normal size. The inferior vena cava appeared normal and decreased > 50% with respiration (RAP 5-10 mmHg) There is no pericardial effusion. REcommen JOE. MMode/2D Measurements & Calculations RVDd: 3.3 cm LVIDd: 5.4 cm FS: 38.7 % Ao root diam: 3.1 cm IVSd: 1.0 cm LVIDs: 3.3 cm EDV(Teich): LVPWd: 0.98 cm 142.5 ml Ao root area: ESV(Teich): 7.5 cm2 44.9 ml LA dimension: EF(Teich): 68.5 % 3.7 cm LVLd ap4: 8.3 cm SV(MOD-sp4): EDV(MOD-sp4): 79.0 ml 116.0 ml LVLs ap4: 6.6 cm ESV(MOD-sp4): 37.0 ml EF(MOD-sp4): 68.1 % Doppler Measurements & Calculations MV E max xavier: MV P1/2t max xavier: Ao V2 max: LV V1 max P.9 cm/sec 126.4 cm/sec 153.1 cm/sec 8.3 mmHg MV A max xavier: MV P1/2t: 40.9 msec Ao max P.4 mmHgLV V1 max: 75.0 cm/sec MVA(P1/2t): 5.4 cm2 143.6 cm/sec MV E/A: 1.7 MV dec slope: 905.8 cm/sec2 MV dec time: 0.16 sec PA V2 max: TR max xavier: MV P1/2t-pr_phl: 95.8 cm/sec 294.5 cm/sec 40.9 msec PA max P.7 mmHgTR max P.7 mmHg Left Ventricle The left ventricle is normal in size. There is normal left ventricular wall thickness. LV EF is 65%.%. Left ventricular systolic function is normal. Doppler measurements suggest normal left ventricular diastolic function. The left ventricular wall motion is normal. There is no thrombus. No ASD,VSD . or PFO. Right Ventricle The right ventricle is grossly normal size. The right ventricle is not well visualized secondary to technical limitations. Atria The right atrium is normal. The left atrial size is normal. Mitral Valve There is no evidence of mitral valve prolapse. There is no vegetation seen on the mitral valve. There is no mitral valve stenosis. There is a mild amount of mitral regurgitation. Aortic Valve There is no aortic valvular vegetation. There is no aortic valve stenosis. No aortic regurgitation is present. Tricuspid Valve There is no tricuspid stenosis. There is a mild amount of tricuspid regurgitation. There is mild pulmonary hypertension by echo. RVSP is 40 t0 45 mmof Hg , with RA mean of 5 to 20. Pulmonic Valve There is no pulmonic valvular stenosis. There is no pulmonic valvular regurgitation. Great Vessels The aortic root is normal size. The inferior vena cava appeared normal and decreased > 50% with respiration (RAP 5-10 mmHg). Effusions There is no pericardial effusion. : DARIUS CHOI > Che Evangelista
[2018-09-29] MEDS: AMLODIPINE BESYLATE 10 MG TABLET PO SCH (22:34)
[2018-09-29] MEDS: IBUPROFEN 800 MG TABLET PO PRN (22:34)
[2018-09-30] MEDS: HEPARIN SOD (PORCINE) 5,000 UNIT/ML 1 ML VIAL SUBCUT SCH ×3 (05:44→21:40)
[2018-09-30] MEDS: VANCOMYCIN HCL 1,500 MG in DEXTROSE 5%-WATER 250 ML IV SCH ×3 (05:44→21:42)
--- NOTE | 2018-09-30 10:33 | RADIOLOGY REPORT (SQ) ---
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 TECHNIQUE: Fluoroscopic and ultrasound guided PICC placement. LIMITATIONS: None. PROCEDURE: After written consent and assessment were obtained, the patient was brought into the fluo roscopy room and placed supine on the table. Ultrasound evaluation of potential access sites were per formed. After successfully identifying a patent left basilic, the left arm was prepped and draped in a sterile fashion along with the ultrasound probe. The entry site was anesthetized with 1% lidocaine. A 21 gauge 7 cm needle was advanced through the skin and into the basilic vein under live ultrasound guidance. An ultrasound image was saved to PACS confirming access site. A .018 guide wire was then inserted through the needle and into the venous system. The needle was then removed and an 11 blade scalpel was used to make a 1cm skin incision. A 5 fr peel-away sheath was advanced over the wire and into the venous system. A measurement was then made using the existing wire and live fluoroscopic gu idance. The wire was then removed and trimmed. The PICC was advanced through the peel-away sheath and into the venous system. The peel-away sheath was removed and the catheter was adhered to the patient s arm with a stat lock. The catheter was then aspirated and flushed and a sterile bandage was placed over the access site. A fluoroscopic spot image was saved to PACS confirming the catheter tip within the superior vena cava. IMPRESSION: SUCCESSFUL PLACEMENT OF A 5 FR DUAL LUMEN 27 CM PICC IN THE LEFT BASILIC VEIN. COMMENT: Patient medication list reviewed: Yes- Quality ID# [id number]:Eligible professional attests to doc umenting in the medical record they obtained, updated, or reviewed the patient's current medications. . Quality ID 145: Final reports for procedures using fluoroscopy that document radiation exposure darcy steph, or exposure time and number of fluorographic images (if radiation exposure indices are not avail able) Quality ID #76: The patient was prepped and draped using maximum sterile barrier technique including cap, mask, sterile gown, sterile gloves, a large sterile sheet, hand hygiene, and 2% Chlorhexidine fo r cutaneous antisepsis. When ultrasound is used, sterile ultrasound techniques are followed requiring sterile gel and sterile probes. TECHNICAL DOCUMENTATION: JOB ID: [id number] [employer]- All Rights Reserved rev-08/10 Reading location - IP/workstation name: [email or web address]
--- NOTE | 2018-09-30 10:33 | RADIOLOGY REPORT (SQ) ---
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 TECHNIQUE: Fluoroscopic and ultrasound guided PICC placement. LIMITATIONS: None. PROCEDURE: After written consent and assessment were obtained, the patient was brought into the fluo roscopy room and placed supine on the table. Ultrasound evaluation of potential access sites were per formed. After successfully identifying a patent left basilic, the left arm was prepped and draped in a sterile fashion along with the ultrasound probe. The entry site was anesthetized with 1% lidocaine. A 21 gauge 7 cm needle was advanced through the skin and into the basilic vein under live ultrasound guidance. An ultrasound image was saved to PACS confirming access site. A .018 guide wire was then inserted through the needle and into the venous system. The needle was then removed and an 11 blade scalpel was used to make a 1cm skin incision. A 5 fr peel-away sheath was advanced over the wire and into the venous system. A measurement was then made using the existing wire and live fluoroscopic gu idance. The wire was then removed and trimmed. The PICC was advanced through the peel-away sheath and into the venous system. The peel-away sheath was removed and the catheter was adhered to the patient s arm with a stat lock. The catheter was then aspirated and flushed and a sterile bandage was placed over the access site. A fluoroscopic spot image was saved to PACS confirming the catheter tip within the superior vena cava. IMPRESSION: SUCCESSFUL PLACEMENT OF A 5 FR DUAL LUMEN 27 CM PICC IN THE LEFT BASILIC VEIN. COMMENT: Patient medication list reviewed: Yes- Quality ID# 130:Eligible professional attests to doc umenting in the medical record they obtained, updated, or reviewed the patient's current medications. . Quality ID 145: Final reports for procedures using fluoroscopy that document radiation exposure darcy steph, or exposure time and number of fluorographic images (if radiation exposure indices are not avail able) Quality ID #76: The patient was prepped and draped using maximum sterile barrier technique including cap, mask, sterile gown, sterile gloves, a large sterile sheet, hand hygiene, and 2% Chlorhexidine fo r cutaneous antisepsis. When ultrasound is used, sterile ultrasound techniques are followed requiring sterile gel and sterile probes. TECHNICAL DOCUMENTATION: JOB ID: [id number] [employer]- All Rights Reserved rev-08/10 Reading location - IP/workstation name: [email or web address]
--- NOTE | 2018-09-30 10:33 | RADIOLOGY REPORT (SQ) ---
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 TECHNIQUE: Fluoroscopic and ultrasound guided PICC placement. LIMITATIONS: None. PROCEDURE: After written consent and assessment were obtained, the patient was brought into the fluo roscopy room and placed supine on the table. Ultrasound evaluation of potential access sites were per formed. After successfully identifying a patent left basilic, the left arm was prepped and draped in a sterile fashion along with the ultrasound probe. The entry site was anesthetized with 1% lidocaine. A 21 gauge 7 cm needle was advanced through the skin and into the basilic vein under live ultrasound guidance. An ultrasound image was saved to PACS confirming access site. A .018 guide wire was then inserted through the needle and into the venous system. The needle was then removed and an 11 blade scalpel was used to make a 1cm skin incision. A 5 fr peel-away sheath was advanced over the wire and into the venous system. A measurement was then made using the existing wire and live fluoroscopic gu idance. The wire was then removed and trimmed. The PICC was advanced through the peel-away sheath and into the venous system. The peel-away sheath was removed and the catheter was adhered to the patient s arm with a stat lock. The catheter was then aspirated and flushed and a sterile bandage was placed over the access site. A fluoroscopic spot image was saved to PACS confirming the catheter tip within the superior vena cava. IMPRESSION: SUCCESSFUL PLACEMENT OF A 5 FR DUAL LUMEN 27 CM PICC IN THE LEFT BASILIC VEIN. COMMENT: Patient medication list reviewed: Yes- Quality ID# [id number]:Eligible professional attests to doc umenting in the medical record they obtained, updated, or reviewed the patient's current medications. . Quality ID 145: Final reports for procedures using fluoroscopy that document radiation exposure darcy steph, or exposure time and number of fluorographic images (if radiation exposure indices are not avail able) Quality ID #76: The patient was prepped and draped using maximum sterile barrier technique including cap, mask, sterile gown, sterile gloves, a large sterile sheet, hand hygiene, and 2% Chlorhexidine fo r cutaneous antisepsis. When ultrasound is used, sterile ultrasound techniques are followed requiring sterile gel and sterile probes. TECHNICAL DOCUMENTATION: JOB ID: [id number] [employer]- All Rights Reserved rev-08/10 Reading location - IP/workstation name: [email or web address]
[2018-09-30] MEDS ORDERED: NORMAL SALINE 10 ML SDV (AFTER EACH USE) IV PRN (11:30)
[2018-09-30] MEDS: LACTOBACILLUS ACIDOPHILUS 250 MG TAB PO SCH ×2 (11:58→18:51)
[2018-09-30] MEDS: DOCUSATE SODIUM 100 MG CAPSULE PO SCH ×3 (11:58→18:51)
[2018-09-30] MEDS: MUPIROCIN 2% OINTMENT 22 GM TP SCH ×2 (11:59→18:50)
[2018-09-30] MEDS: FAMOTIDINE INJ/PF 20 MG/2 ML SDV IV SCH (11:59)
--- NOTE | 2018-09-30 13:39 | PDOC PROGRESS REPORT ---
Subjective Progress Note for:: 09/30/18 Subjective:: The patient is a 33-year-old male with past medical history significant only for tobacco dependency who was admitted 09/23/18 for no cellulitis with potential abscess formation noted on CT scan. ENT has been consulted; s/p I&D with surgical drains in place. Patient was seen on morning rounds. He was found resting in bed comfortably on room air. He reports improved nasal/facial tenderness. Edema has resolved. He reports headaches are less frequency and intense; responding well to Fioricet and Motrin. He denies fever, chills, body aches, chest pain, palpitations, dyspnea, orthopnea, abdominal pain, nausea and vomiting. Has a good appetite. He has no other questions or concerns. No concerns per nursing. Reason For Visit: FACIAL CELLULITIS Physical Exam Vital Signs: Temp Pulse Resp BP Pulse Ox 98.2 F 92 16 138/86 H 100 09/30/18 11:00 09/30/18 11:00 09/30/18 11:00 09/30/18 11:00 09/30/18 11:00 Intake & Output 09/29/18 09/30/18 10/01/18 06:59 06:59 06:59 Intake Total 1940 2660 730 Balance 1940 2660 730 Weight 76.2 kg 76.2 kg General appearance: PRESENT: no acute distress, cooperative, well-developed, well-nourished Head exam: PRESENT: atraumatic, normocephalic, other - Bilateral nasal surgical drains in place. Eye exam: PRESENT: conjunctiva pink, EOMI, PERRLA. ABSENT: scleral icterus Ear exam: PRESENT: normal external ear exam Mouth exam: PRESENT: moist, tongue midline Neck exam: ABSENT: carotid bruit, JVD, lymphadenopathy, thyromegaly Respiratory exam: PRESENT: clear to auscultation saida, symmetrical, unlabored. ABSENT: rales, rhonchi, wheezes Cardiovascular exam: PRESENT: RRR, +S1, +S2. ABSENT: diastolic murmur, rubs, systolic murmur Pulses: PRESENT: normal dorsalis pedis pul Vascular exam: PRESENT: normal capillary refill GI/Abdominal exam: PRESENT: normal bowel sounds, soft. ABSENT: distended, guarding, mass, organolmegaly, rebound, tenderness Rectal exam: PRESENT: deferred Extremities exam: PRESENT: full ROM. ABSENT: calf tenderness, clubbing, pedal edema Neurological exam: PRESENT: alert, awake, oriented to person, oriented to place, oriented to time, oriented to situation, CN II-XII grossly intact. ABSENT: motor sensory deficit Psychiatric exam: PRESENT: appropriate affect, normal mood. ABSENT: homicidal i deation, suicidal ideation Skin exam: PRESENT: dry, intact, warm. ABSENT: cyanosis, rash Results Laboratory Results: 09/26/18 04:46 09/25/18 06:30 09/25/18 07:20 Blood Blood Culture - Final NO GROWTH IN 5 DAYS 09/25/18 06:30 Blood Blood Culture - Final NO GROWTH IN 5 DAYS Impressions: Chest X-Ray 09/23/18 18:28 IMPRESSION: NO ACUTE RADIOGRAPHIC FINDING IN THE CHEST. Facial Bones CT 09/23/18 19:00 IMPRESSION: 1. Prominent soft tissue swelling peripheral and deep to the nasal bones and the nasal cartilage. Study performed with IV contrast and includes area of enhancement possibly normal or inflamed cartilage and areas of low density possibly pus or simple fluid/mucus. Soft tissue swelling extends in the midline into the nasal cavity. Most prominent anteriorly but causes soft tissue thickening adjacent to the nasal septum. The nasal turbinates are not enlarged. 2. Relative mild sinus disease. No obvious destructive bone changes. 3. Mild prominence of the adenoids. Guidance Fluoroscopy 09/30/18 00:00 IMPRESSION: SUCCESSFUL PLACEMENT OF A 5 FR DUAL LUMEN 27 CM PICC IN THE LEFT BASILIC VEIN. Interventional Vascular Procedure 09/30/18 00:00 IMPRESSION: SUCCESSFUL PLACEMENT OF A 5 FR DUAL LUMEN 27 CM PICC IN THE LEFT BASILIC VEIN. PICC Line Insertion 09/30/18 07:00 IMPRESSION: SUCCESSFUL PLACEMENT OF A 5 FR DUAL LUMEN 27 CM PICC IN THE LEFT BASILIC VEIN. Assessment and Plan - Diagnosis (1) Nose cellulitis Is this a current diagnosis for this admission?: Yes Plan: Now s/p surgical I&D by ENT. Blood cultures are positive for MDR MRSA. Repeat cultures (09/25/18) are negative at 4 days. Multiple Wound cultures growing MDR MRSA. Patient is admitted to the medical floor. Continue IV vancomycin ENT is consulted; spoke w/ office today. Dr. Garcia will see patient to remove drains (likely today) Analgesics as needed. (2) Bacteremia Is this a current diagnosis for this admission?: Yes Plan: Blood cultures are positive for MDR MRSA (2/4 bottles). Repeat cultures (09/25/18) negative Multiple Wound cultures growing MDR MRSA. 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 He does confirm a history of MRSA but denies IV drug use. No heart valves or orthopedic prosthetics present. Patient did initially present in [facility] custody. D/c planning reports patient does have previous drug related charges; therefore will need to keep in-house for completion of antibiotic therapy. Discussed w/ Dr. Garcia, ID. Recommends 2 weeks IV Vancomycin or Daptomycin; end date 10/09 pending JOE results. Have called [facility] to arrange JOE; awaiting call back w/ appointment. Continue IV Vanc. Discharge planning is consulted. (3) Hypertension Is this a current diagnosis for this admission?: Yes Plan: Improved HTN with start of amlodipine Continue amlodipine 10 mg qHS. Analgesics as needed. (4) Facial pain, acute Is this a current diagnosis for this admission?: Yes Plan: Secondary to #1 Tylenol or Motrin for pain Oxycodone 5/325 q6hp as needed for pain. (5) Sepsis Qualifiers: Sepsis type: sepsis due to unspecified organism Qualified Code(s): A41.9 - Sepsis, unspecified organism Is this a current diagnosis for this admission?: Yes Plan: Resolved. Sepsis due to gram-positive cocci, present on admission, evidenced by Leukocytosis, elevated lactic acid, elevated bilirubin, fever, tachycardia, and nasal cellulitis with potential abscesses noted on facial CT. Cultures and antibiotics as above. (6) Head ache Is this a current diagnosis for this admission?: Yes Plan: Possibly rebound r/t oxycodone use vs sinus r/t facial cellutlits. Encouraged use of tylenol or motrin for pain. As needed fiorecet. Begin reducing oxycode dose/frequency. - Time Time Spent with patient: 15-24 minutes Medications reviewed and adjusted accordingly: Yes Anticipated discharge: Home Within: Other - 10/09/18 pending JOE results. - Inpatient Certification Based on my medical assessment, after consideration of the patient's comorbidities, presenting symptoms, or acuity I expect that the services needed warrant INPATIENT care.: Yes I certify that my determination is in accordance with my understanding of Medicare's requirements for reasonable and necessary INPATIENT services [42 CFR 412.3e].: Yes
[2018-09-30] MEDS ORDERED: ONDANSETRON HCL INJ/PF 4 MG/2 ML SDV IV PRN (15:30)
[2018-09-30] MEDS: AMLODIPINE BESYLATE 10 MG TABLET PO SCH (21:41)
[2018-09-30] MEDS: NORMAL SALINE 10 ML SDV (SCHEDULED) IV SCH (21:41)
[2018-09-30] MEDS: FAMOTIDINE 20 MG TABLET PO SCH (21:42)
[2018-09-30] MEDS: IBUPROFEN 800 MG TABLET PO PRN (23:22)
[2018-09-30] MEDS: BUTALB/ACETAMINOPHEN/CAFFEINE 1 TAB EACH PO PRN (23:39)
[2018-10-01] MEDS: HEPARIN SOD (PORCINE) 5,000 UNIT/ML 1 ML VIAL SUBCUT SCH ×3 (06:35→21:17)
[2018-10-01 06:47] LABS: VANCOMYCIN,TROUGH 15.4 ug/mL (5.0-20.0)
[2018-10-01] MEDS: VANCOMYCIN HCL 1,500 MG in DEXTROSE 5%-WATER 250 ML IV SCH ×3 (06:52→21:17)
[2018-10-01] MEDS: DOCUSATE SODIUM 100 MG CAPSULE PO SCH ×2 (11:13→17:41)
[2018-10-01] MEDS: LACTOBACILLUS ACIDOPHILUS 250 MG TAB PO SCH ×2 (11:18→17:39)
[2018-10-01] MEDS: MUPIROCIN 2% OINTMENT 22 GM TP SCH ×2 (11:20→17:46)
[2018-10-01] MEDS: NORMAL SALINE 10 ML SDV (SCHEDULED) IV SCH ×2 (11:22→21:18)
[2018-10-01] MEDS: FAMOTIDINE 20 MG TABLET PO SCH ×2 (11:22→21:17)
--- NOTE | 2018-10-01 11:45 | PDOC PROGRESS REPORT ---
Subjective Progress Note for:: 10/01/18 Subjective:: 33-year-old male with past medical history significant only for tobacco dependency who was admitted 09/23/18 for no cellulitis with potential abscess formation noted on CT scan. ENT has been consulted; s/p I&D with surgical drains in place. Patient was seen on morning rounds. He was found resting in bed comfortably on room air. He reports improved nasal/facial tenderness. Edema has resolved. He reports headaches are less frequency and intense; responding well to Fioricet and Motrin. He denies fever, chills, body aches, chest pain, palpitations, dyspnea, ort hopnea, abdominal pain, nausea and vomiting. Has a good appetite. He has no other questions or concerns. No concerns per nursing. 04/03/[id number]-cmfm-old male admitted with sepsis status post IND done by ENT. Surgical drains are in place. No acute events in the last 24 hours. Afebrile. Reason For Visit: FACIAL CELLULITIS Physical Exam Vital Signs: Temp Pulse Resp BP Pulse Ox 98.6 F 79 16 136/96 H 100 10/01/18 08:13 10/01/18 08:13 10/01/18 08:13 10/01/18 08:13 10/01/18 08:13 Intake & Output 09/30/18 10/01/18 10/02/18 06:59 06:59 06:59 Intake Total 2660 1230 250 Balance 2660 1230 250 Weight 76.2 kg 76.2 kg General appearance: PRESENT: no acute distress Head exam: PRESENT: atraumatic Eye exam: PRESENT: PERRLA Mouth exam: PRESENT: moist, tongue midline Teeth exam: PRESENT: poor dentation Neck exam: ABSENT: carotid bruit, JVD, lymphadenopathy, thyromegaly Respiratory exam: PRESENT: clear to auscultation saida. ABSENT: rales, rhonchi, wheezes Cardiovascular exam: PRESENT: RRR. ABSENT: diastolic murmur, rubs, systolic murmur GI/Abdominal exam: PRESENT: normal bowel sounds, soft. ABSENT: distended, guarding, mass, organolmegaly, rebound, tenderness Rectal exam: PRESENT: deferred Extremities exam: PRESENT: full ROM. ABSENT: calf tenderness, clubbing, pedal edema Neurological exam: PRESENT: alert, awake, oriented to person, oriented to place, oriented to time, oriented to situation, CN II-XII grossly intact. ABSENT: motor sensory deficit Psychiatric exam: PRESENT: appropriate affect, normal mood. ABSENT: homicidal ideation, suicidal ideation Results Laboratory Results: 09/26/18 04:46 10/01/18 05:51 10/01/18 05:51 Creatinine 0.74 Est GFR ( Amer) > 60 Est GFR (Non-Af Amer) > 60 09/25/18 07:20 Blood Blood Culture - Final NO GROWTH IN 5 DAYS Impressions: Chest X-Ray 09/23/18 18:28 IMPRESSION: NO ACUTE RADIOGRAPHIC FINDING IN THE CHEST. Facial Bones CT 09/23/18 19:00 IMPRESSION: 1. Prominent soft tissue swelling peripheral and deep to the nasal bones and the nasal cartilage. Study performed with IV contrast and includes area of enhancement possibly normal or inflamed cartilage and areas of low density possibly pus or simple fluid/mucus. Soft tissue swelling extends in the midline into the nasal cavity. Most prominent anteriorly but causes soft tissue thickening adjacent to the nasal septum. The nasal turbinates are not enlarged. 2. Relative mild sinus disease. No obvious destructive bone changes. 3. Mild prominence of the adenoids. Guidance Fluoroscopy 09/30/18 00:00 IMPRESSION: SUCCESSFUL PLACEMENT OF A 5 FR DUAL LUMEN 27 CM PICC IN THE LEFT BASILIC VEIN. Interventional Vascular Procedure 09/30/18 00:00 IMPRESSION: SUCCESSFUL PLACEMENT OF A 5 FR DUAL LUMEN 27 CM PICC IN THE LEFT BASILIC VEIN. PICC Line Insertion 09/30/18 07:00 IMPRESSION: SUCCESSFUL PLACEMENT OF A 5 FR DUAL LUMEN 27 CM PICC IN THE LEFT BASILIC VEIN. Assessment and Plan - Diagnosis (1) Bacteremia Is this a current diagnosis for this admission?: Yes Plan: Blood cultures are positive for MDR MRSA (2/4 bottles). Repeat cultures (09/25/18) negative Multiple Wound cultures growing MDR MRSA. Echocardiogram completed; no obvious vegetations, however, conveyor tender at [facility] is recommending follow up JOE. He does confirm a history of MRSA but denies IV drug use. No heart valves or orthopedic prosthetics present. Patient did initially present in [facility] custody. D/c planning reports patient does have previous drug related charges; therefore will need to keep in-house for completion of antibiotic therapy. Discussed w/ Dr. Garcia, ID. Recommends 2 weeks IV Vancomycin or Daptomycin; end date 10/09 pending JOE results. Have called [facility] to arrange JOE; awaiting call back w/ appointment. Continue IV Vanc. Discharge planning is consulted. 10/01/2018-blood cultures are positive for MRSA he is on IV vancomycin. Echocardiogram was normal study. ID is on board. Plan is to continue IV antibiotic therapy. We could to get in touch with [facility] again for JOE. (2) Nose cellulitis Is this a current diagnosis for this admission?: Yes Plan: Now s/p surgical I&D by ENT. Blood cultures are positive for MDR MRSA. Repeat cultures (09/25/18) are negative at 4 days. Multiple Wound cultures growing MDR MRSA. Patient is admitted to the medical floor. Continue IV vancomycin ENT is consulted; spoke w/ office today. Dr. Garcia will see patient to remove drains (likely today) Analgesics as needed. 10/01/2018-status post IND done by ENT. He has acute displacement. Cultures are positive for MRSA and IV vancomycin. dr delacruz on board. (3) Hypertension Is this a current diagnosis for this admission?: Yes Plan: Improved HTN with start of amlodipine Continue amlodipine 10 mg qHS. Analgesics as needed. 10/01/2018- bp is 148/90 on amlodepine 10 mg po daily plan to continue present treatment.
[2018-10-01] MEDS: SODIUM CHLORIDE NASAL SPRAY 44 ML NASL SCH (17:40)
[2018-10-01] MEDS: AMLODIPINE BESYLATE 10 MG TABLET PO SCH (21:18)
[2018-10-01] MEDS: OXYCODONE-ACETAMINOPHEN 5-325 MG TABLET PO PRN (21:27)
[2018-10-02] MEDS: HEPARIN SOD (PORCINE) 5,000 UNIT/ML 1 ML VIAL SUBCUT SCH ×3 (06:09→21:32)
[2018-10-02] MEDS: VANCOMYCIN HCL 1,500 MG in DEXTROSE 5%-WATER 250 ML IV SCH ×3 (06:10→21:31)
[2018-10-02 06:33] LABS: ABSOLUTE BASOPHILS # (AUTO) 0.1 10^3/uL (0.0-0.2); ABSOLUTE EOSINOPHILS # (AUTO) 0.2 10^3/uL (0.0-0.6); ABSOLUTE LYMPHOCYTES (AUTO) 1.9 10^3/uL (0.5-4.7); ABSOLUTE MONOCYTES (AUTO) 1.3 10^3/uL (0.1-1.4); EOSINOPHILS % (AUTO) 1.8 % (0-6); MEAN CORPUSCULAR HEMOGLOBIN 31.9 pg (27.0-33.4); MEAN CORPUSCULAR HGB CONC 34.2 g/dL (32.0-36.0); MEAN CORPUSCULAR VOLUME 93 fl (80-97); MONOCYTES % (AUTO) 12.4 % (3-13); PLATELET COUNT 348 10^3/uL (150-450); RED BLOOD COUNT 4.08 10^6/uL (4.35-5.55); SEGMENTED NEUTROPHILS % (AUTO) 66.8 % (42-78); TOTAL CELLS COUNTED % (AUTO) 100 %; WHITE BLOOD COUNT 10.5 10^3/uL (4.0-10.5)
[2018-10-02 06:40] LABS: ALANINE AMINOTRANSFERASE 103 U/L (21-72); ALBUMIN 3.8 g/dL (3.5-5.0); ALKALINE PHOSPHATASE 92 U/L (38-126); ANION GAP 10 (5-19); ASPARTATE AMINO TRANSFERASE 46 U/L (17-59); BILIRUBIN,DIRECT 0.2 mg/dL (0.0-0.4); BILIRUBIN,TOTAL 0.3 mg/dL (0.2-1.3); BLOOD UREA NITROGEN 17 mg/dL (7-20); CALCIUM 9.5 mg/dL (8.4-10.2); CARBON DIOXIDE 30 mmol/L (22-30); CHLORIDE 99 mmol/L (98-107); GLUCOSE 154 mg/dL (75-110); POTASSIUM 4.3 mmol/L (3.6-5.0); TOTAL PROTEIN 6.7 g/dL (6.3-8.2)
[2018-10-02] MEDS: DOCUSATE SODIUM 100 MG CAPSULE PO SCH ×2 (09:10→17:12)
[2018-10-02] MEDS: MUPIROCIN 2% OINTMENT 22 GM TP SCH ×2 (09:45→17:13)
[2018-10-02] MEDS: LACTOBACILLUS ACIDOPHILUS 250 MG TAB PO SCH ×2 (09:45→17:12)
[2018-10-02] MEDS: FAMOTIDINE 20 MG TABLET PO SCH ×2 (09:46→21:32)
[2018-10-02] MEDS: OXYCODONE-ACETAMINOPHEN 5-325 MG TABLET PO PRN ×2 (09:46→19:29)
[2018-10-02] MEDS: NORMAL SALINE 10 ML SDV (SCHEDULED) IV SCH ×2 (09:48→21:33)
[2018-10-02] MEDS: SODIUM CHLORIDE NASAL SPRAY 44 ML NASL SCH ×3 (09:49→17:13)
--- NOTE | 2018-10-02 10:42 | PDOC PROGRESS REPORT ---
Subjective Progress Note for:: 10/02/18 Subjective:: 33-year-old male with past medical history significant only for tobacco dependency who was admitted 09/23/18 for no cellulitis with potential abscess formation noted on CT scan. ENT has been consulted; s/p I&D with surgical drains in place. Patient was seen on morning rounds. He was found resting in bed comfortably on room air. He reports improved nasal/facial tenderness. Edema has resolved. He reports headaches are less frequency and intense; responding well to Fioricet and Motrin. He denies fever, chills, body aches, chest pain, palpitations, dyspnea, ort hopnea, abdominal pain, nausea and vomiting. Has a good appetite. He has no other questions or concerns. No concerns per nursing. 10/01/[id number]-wgeb-old male admitted with sepsis status post I/D done by ENT. Surgical drains are in place. No acute events in the last 24 hours. Afebrile. 10/02/[id number]-wjhz-old male admitted with sepsis status post I/D done by the ENT. Surgical drains are removed from the nostrils yesterday. Patient is afebrile. He is on IV vancomycin and he has a PICC line. He is going to [facility] on Sunday for JOE. WBC count came down to 10.5 today. pt is comfortable in the bed communicating well no complaints. Reason For Visit: FACIAL CELLULITIS Physical Exam Vital Signs: Temp Pulse Resp BP Pulse Ox 98.1 F 86 16 147/97 H 100 10/02/18 04:30 10/02/18 04:30 10/02/18 04:30 10/02/18 04:30 10/02/18 04:30 Intake & Output 10/01/18 10/02/18 10/03/18 06:59 06:59 06:59 Intake Total 1230 1840 250 Balance 1230 1840 250 Weight 76.2 kg 76.3 kg General appearance: PRESENT: no acute distress Head exam: PRESENT: atraumatic Eye exam: PRESENT: PERRLA Mouth exam: PRESENT: moist, tongue midline Teeth exam: PRESENT: poor dentation Neck exam: ABSENT: carotid bruit, JVD, lymphadenopathy, thyromegaly Respiratory exam: PRESENT: clear to auscultation saida. ABSENT: rales, rhonchi, wheezes Cardiovascular exam: PRESENT: RRR. ABSENT: diastolic murmur, rubs, systolic murmur GI/Abdominal exam: PRESENT: normal bowel sounds, soft. ABSENT: distended, guarding, mass, organolmegaly, rebound, tenderness Rectal exam: PRESENT: deferred Extremities exam: PRESENT: full ROM. ABSENT: calf tenderness, clubbing, pedal edema Neurological exam: PRESENT: alert, awake, oriented to person, oriented to place, oriented to time, oriented to situation, CN II-XII grossly intact. ABSENT: motor sensory deficit Psychiatric exam: PRESENT: appropriate affect, normal mood. ABSENT: homicidal ideation, suicidal ideation Results Laboratory Results: 10/02/18 06:15 10/02/18 06:15 10/02/18 10/02/18 06:15 06:15 WBC 10.5 RBC 4.08 L Hgb 13.0 L Hct 38.0 MCV 93 MCH 31.9 MCHC 34.2 RDW 13.0 Plt Count 348 Seg Neutrophils % 66.8 Lymphocytes % 18.0 Monocytes % 12.4 Eosinophils % 1.8 Basophils % 1.0 Absolute Neutrophils 7.0 Absolute Lymphocytes 1.9 Absolute Monocytes 1.3 Absolute Eosinophils 0.2 Absolute Basophils 0.1 Sodium 138.9 Potassium 4.3 Chloride 99 Carbon Dioxide 30 Anion Gap 10 BUN 17 Creatinine 0.78 Est GFR ( Amer) > 60 Est GFR (Non-Af Amer) > 60 Glucose 154 H Calcium 9.5 Magnesium 1.9 Total Bilirubin 0.3 AST 46 ALT 103 H Alkaline Phosphatase 92 Total Protein 6.7 Albumin 3.8 Impressions: Chest X-Ray 09/23/18 18:28 IMPRESSION: NO ACUTE RADIOGRAPHIC FINDING IN THE CHEST. Facial Bones CT 09/23/18 19:00 IMPRESSION: 1. Prominent soft tissue swelling peripheral and deep to the nasal bones and the nasal cartilage. Study performed with IV contrast and includes area of enhancement possibly normal or inflamed cartilage and areas of low density possibly pus or simple fluid/mucus. Soft tissue swelling extends in the midline into the nasal cavity. Most prominent anteriorly but causes soft tissue thickening adjacent to the nasal septum. The nasal turbinates are not enlarged. 2. Relative mild sinus disease. No obvious destructive bone changes. 3. Mild prominence of the adenoids. Guidance Fluoroscopy 09/30/18 00:00 IMPRESSION: SUCCESSFUL PLACEMENT OF A 5 FR DUAL LUMEN 27 CM PICC IN THE LEFT BASILIC VEIN. Interventional Vascular Procedure 09/30/18 00:00 IMPRESSION: SUCCESSFUL PLACEMENT OF A 5 FR DUAL LUMEN 27 CM PICC IN THE LEFT BASILIC VEIN. PICC Line Insertion 09/30/18 07:00 IMPRESSION: SUCCESSFUL PLACEMENT OF A 5 FR DUAL LUMEN 27 CM PICC IN THE LEFT BASILIC VEIN. Assessment and Plan - Diagnosis (1) Bacteremia Is this a current diagnosis for this admission?: Yes Plan: Blood cultures are positive for MDR MRSA (2/4 bottles). Repeat cultures (09/25/18) negative Multiple Wound cultures growing MDR MRSA. 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 He does confirm a history of MRSA but denies IV drug use. No heart valves or orthopedic prosthetics present. Patient did initially present in [facility] custody. D/c planning reports patient does have previous drug related charges; therefore will need to keep in-house for completion of antibiotic therapy. Discussed w/ Dr. Garcia, ID. Recommends 2 weeks IV Vancomycin or Daptomycin; end date 10/09 pending JOE results. Have called [facility] to arrange JOE; awaiting call back w/ appointment. Continue IV Vanc. Discharge planning is consulted. 10/01/2018-blood cultures are positive for MRSA he is on IV vancomycin. Echocardiogram was normal study. ID is on board. Plan is to continue IV antibiotic therapy. We could to get in touch with [facility] again for JOE. 10/02/2018-blood cultures are positive for MRSA presently patient is on IV vancomycin transthoracic echocardiogram done here is normal study. Patient is going to [facility] on Sunday for a JOE. (2) Nose cellulitis Is this a current diagnosis for this admission?: Yes Plan: Now s/p surgical I&D by ENT. Blood cultures are positive for MDR MRSA. Repeat cultures (09/25/18) are negative at 4 days. Multiple Wound cultures growing MDR MRSA. Patient is admitted to the medical floor. Continue IV vancomycin ENT is consulted; spoke w/ office today. Dr. Garcia will see patient to remove drains (likely today) Analgesics as needed. 10/01/2018-status post ID done by ENT. Cultures are positive for MRSA and IV vancomycin. dr delacruz on board. 10/02/2018-surgical drains are removed from the nostrils yesterday. No complaints from the patient today. (3) Hypertension Is this a current diagnosis for this admission?: Yes Plan: Improved HTN with start of amlodipine Continue amlodipine 10 mg qHS. Analgesics as needed. 10/01/2018- bp is 148/90 on amlodepine 10 mg po daily plan to continue present treatment. 10/02/2018-blood pressure today is 147/90 on amlodipine 10 mg p.o. daily plan is to continue the present management. - Time Time Spent with patient: 25-34 minutes Medications reviewed and adjusted accordingly: Yes Anticipated discharge: Home
[2018-10-02] MEDS: AMLODIPINE BESYLATE 10 MG TABLET PO SCH (21:32)
[2018-10-03] MEDS: VANCOMYCIN HCL 1,500 MG in DEXTROSE 5%-WATER 250 ML IV SCH ×3 (07:05→22:32)
[2018-10-03] MEDS: HEPARIN SOD (PORCINE) 5,000 UNIT/ML 1 ML VIAL SUBCUT SCH ×3 (07:06→21:31)
[2018-10-03] MEDS: LACTOBACILLUS ACIDOPHILUS 250 MG TAB PO SCH ×2 (09:43→17:35)
[2018-10-03] MEDS: FAMOTIDINE 20 MG TABLET PO SCH ×2 (09:44→22:37)
[2018-10-03] MEDS: NORMAL SALINE 10 ML SDV (SCHEDULED) IV SCH ×2 (09:45→22:32)
[2018-10-03] MEDS: SODIUM CHLORIDE NASAL SPRAY 44 ML NASL SCH ×3 (09:45→17:35)
[2018-10-03] MEDS: MUPIROCIN 2% OINTMENT 22 GM TP SCH ×2 (09:46→17:36)
[2018-10-03] MEDS: DOCUSATE SODIUM 100 MG CAPSULE PO SCH ×2 (09:55→17:32)
--- NOTE | 2018-10-03 10:41 | PDOC PROGRESS REPORT ---
Subjective Progress Note for:: 10/03/18 Subjective:: 33-year-old male with past medical history significant only for tobacco dependency who was admitted 09/23/18 for no cellulitis with potential abscess formation noted on CT scan. ENT has been consulted; s/p I&D with surgical drains in place. Patient was seen on morning rounds. He was found resting in bed comfortably on room air. He reports improved nasal/facial tenderness. Edema has resolved. He reports headaches are less frequency and intense; responding well to Fioricet and Motrin. He denies fever, chills, body aches, chest pain, palpitations, dyspnea, ort hopnea, abdominal pain, nausea and vomiting. Has a good appetite. He has no other questions or concerns. No concerns per nursing. 10/01/[id number]-ipqc-old male admitted with sepsis status post I/D done by ENT. Surgical drains are in place. No acute events in the last 24 hours. Afebrile. 10/02/[id number]-flfo-old male admitted with sepsis status post I/D done by the ENT. Surgical drains are removed from the nostrils yesterday. Patient is afebrile. He is on IV vancomycin and he has a PICC line. He is going to [facility] on Sunday for JOE. WBC count came down to 10.5 today. pt is comfortable in the bed communicating well no complaints. 10/03/[id number]-expu-old male admitted with abscess noted on the CT scan ENT did the I&D later on surgical drains are removed from the nostril patient is doing well cultures came back positive for MRSA he is on IV vancomycin he has a PICC line tomorrow he is going to [facility] for JOE. No acute events in last 24 hours and afebrile. Reason For Visit: FACIAL CELLULITIS Physical Exam Vital Signs: Temp Pulse Resp BP Pulse Ox 97.5 F 88 16 137/100 H 98 10/03/18 07:00 10/03/18 07:00 10/03/18 07:00 10/03/18 07:00 10/03/18 07:00 Intake & Output 10/02/18 10/03/18 10/04/18 06:59 06:59 06:59 Intake Total 1840 2510 250 Balance 1840 2510 250 Weight 76.3 kg 77.1 kg General appearance: PRESENT: no acute distress Head exam: PRESENT: atraumatic Eye exam: PRESENT: PERRLA Mouth exam: PRESENT: moist, tongue midline Neck exam: ABSENT: carotid bruit, JVD, lymphadenopathy, thyromegaly Respiratory exam: PRESENT: decreased breath sounds Cardiovascular exam: PRESENT: RRR. ABSENT: diastolic murmur, rubs, systolic murmur Pulses: PRESENT: normal dorsalis pedis pul GI/Abdominal exam: PRESENT: normal bowel sounds, soft. ABSENT: distended, guarding, mass, organolmegaly, rebound, tenderness Rectal exam: PRESENT: deferred Extremities exam: PRESENT: full ROM. ABSENT: calf tenderness, clubbing, pedal edema Neurological exam: PRESENT: alert, awake, oriented to person, oriented to place, oriented to time, oriented to situation, CN II-XII grossly intact. ABSENT: motor sensory deficit Psychiatric exam: PRESENT: appropriate affect, normal mood. ABSENT: homicidal ideation, suicidal ideation Results Laboratory Results: 10/02/18 06:15 10/02/18 06:15 Impressions: Chest X-Ray 09/23/18 18:28 IMPRESSION: NO ACUTE RADIOGRAPHIC FINDING IN THE CHEST. Facial Bones CT 09/23/18 19:00 IMPRESSION: 1. Prominent soft tissue swelling peripheral and deep to the nasal bones and the nasal cartilage. Study performed with IV contrast and includes area of enhancement possibly normal or inflamed cartilage and areas of low density possibly pus or simple fluid/mucus. Soft tissue swelling extends in the midline into the nasal cavity. Most prominent anteriorly but causes soft tissue thickening adjacent to the nasal septum. The nasal turbinates are not enlarged. 2. Relative mild sinus disease. No obvious destructive bone changes. 3. Mild prominence of the adenoids. Guidance Fluoroscopy 09/30/18 00:00 IMPRESSION: SUCCESSFUL PLACEMENT OF A 5 FR DUAL LUMEN 27 CM PICC IN THE LEFT BA SILIC VEIN. Interventional Vascular Procedure 09/30/18 00:00 IMPRESSION: SUCCESSFUL PLACEMENT OF A 5 FR DUAL LUMEN 27 CM PICC IN THE LEFT BASILIC VEIN. PICC Line Insertion 09/30/18 07:00 IMPRESSION: SUCCESSFUL PLACEMENT OF A 5 FR DUAL LUMEN 27 CM PICC IN THE LEFT BASILIC VEIN. Assessment and Plan - Diagnosis (1) Bacteremia Is this a current diagnosis for this admission?: Yes Plan: Blood cultures are positive for MDR MRSA (2/4 bottles). Repeat cultures (09/25/18) negative Multiple Wound cultures growing MDR MRSA. Echocardiogram completed; no obvious vegetations, however, pattern wheel maker at [facility] is recommending follow up JOE. He does confirm a history of MRSA but denies IV drug use. No heart valves or orthopedic prosthetics present. Patient did initially present in [facility] custody. D/c planning reports patient does have previous drug related charges; therefore will need to keep in-house for completion of antibiotic therapy. Discussed w/ Dr. Garcia, [facility]. Recommends 2 weeks IV Vancomycin or Daptomycin; end date 10/09 pending JOE results. Have called [facility] to arrange JOE; awaiting call back w/ appointment. Continue IV Vanc. Discharge planning is consulted. 10/01/2018-blood cultures are positive for MRSA he is on IV vancomycin. Echocardiogram was normal study. ID is on board. Plan is to continue IV antibiotic therapy. We could to get in touch with [facility] again for JOE. 10/02/2018-blood cultures are positive for MRSA presently patient is on IV vancomycin transthoracic echocardiogram done here is normal study. Patient is going to [facility] on Sunday for a JOE. 10/03/2018-blood cultures positive for MRSA on IV vancomycin. Is going for a JOE at [facility] tomorrow. (2) Nose cellulitis Is this a current diagnosis for this admission?: Yes Plan: Now s/p surgical I&D by ENT. Blood cultures are positive for MDR MRSA. Repeat cultures (09/25/18) are negative at 4 days. Multiple Wound cultures growing MDR MRSA. Patient is admitted to the medical floor. Continue IV vancomycin ENT is consulted; spoke w/ office today. Dr. Garcia will see patient to remove drains (likely today) Analgesics as needed. 10/01/2018-status post ID done by ENT. Cultures are positive for MRSA and IV vancomycin. dr delacruz on board. 10/02/2018-surgical drains are removed from the nostrils yesterday. No complaints from the patient today. 10/03/2018-I&D was done by ENT later on surgical drains are removed patient is a febrile presently on IV vancomycin. (3) Hypertension Is this a current diagnosis for this admission?: Yes Plan: Improved HTN with start of amlodipine Continue amlodipine 10 mg qHS. Analgesics as needed. 10/01/2018- bp is 148/90 on amlodepine 10 mg po daily plan to continue present treatment. 10/02/2018-blood pressure today is 147/90 on amlodipine 10 mg p.o. daily plan is to continue the present management. 10/03/2018-patient blood pressure today is 156/88 on amlodipine 10 mg p.o. daily plan to add lisinopril 5 mg p.o. nightly. - Time Time Spent with patient: 15-24 minutes Medications reviewed and adjusted accordingly: Yes Anticipated discharge: Home
[2018-10-03 11:33] LABS: INTERNATIONAL RATION (INR) 0.94; PROTHROMBIN TIME 12.6 SEC (11.4-15.4)
[2018-10-03] MEDS: LISINOPRIL 5 MG TABLET PO SCH (13:31)
[2018-10-03] MEDS: OXYCODONE-ACETAMINOPHEN 5-325 MG TABLET PO PRN ×2 (16:11→22:42)
[2018-10-03] MEDS: IBUPROFEN 800 MG TABLET PO PRN (17:42)
[2018-10-03] MEDS: AMLODIPINE BESYLATE 10 MG TABLET PO SCH (22:37)
[2018-10-04] MEDS: HEPARIN SOD (PORCINE) 5,000 UNIT/ML 1 ML VIAL SUBCUT SCH ×3 (05:02→21:55)
[2018-10-04] MEDS: VANCOMYCIN HCL 1,500 MG in DEXTROSE 5%-WATER 250 ML IV SCH ×3 (05:45→21:50)
[2018-10-04 06:43] LABS: ABSOLUTE BASOPHILS # (AUTO) 0.1 10^3/uL (0.0-0.2); ABSOLUTE EOSINOPHILS # (AUTO) 0.1 10^3/uL (0.0-0.6); ABSOLUTE LYMPHOCYTES (AUTO) 2.2 10^3/uL (0.5-4.7); ABSOLUTE NEUT (AUTO) 6.5 10^3/uL (1.7-8.2); BASOPHILS % (AUTO) 0.9 % (0-2); EOSINOPHILS % (AUTO) 1.1 % (0-6); HEMATOCRIT 41.1 % (37.9-51.0); LYMPHOCYTES % (AUTO) 22.1 % (13-45); MEAN CORPUSCULAR HEMOGLOBIN 31.9 pg (27.0-33.4); MEAN CORPUSCULAR HGB CONC 34.1 g/dL (32.0-36.0); MEAN CORPUSCULAR VOLUME 94 fl (80-97); MONOCYTES % (AUTO) 9.8 % (3-13); PLATELET COUNT 376 10^3/uL (150-450); RED BLOOD COUNT 4.38 10^6/uL (4.35-5.55); RED CELL DISTRIBUTION WIDTH 12.9 % (11.5-14.0); SEGMENTED NEUTROPHILS % (AUTO) 66.1 % (42-78); TOTAL CELLS COUNTED % (AUTO) 100 %; WHITE BLOOD COUNT 9.9 10^3/uL (4.0-10.5)
[2018-10-04 06:57] LABS: ALANINE AMINOTRANSFERASE 96 U/L (21-72); ALBUMIN 3.9 g/dL (3.5-5.0); ALKALINE PHOSPHATASE 122 U/L (38-126); ANION GAP 10 (5-19); ASPARTATE AMINO TRANSFERASE 39 U/L (17-59); BILIRUBIN,DIRECT 0.2 mg/dL (0.0-0.4); BILIRUBIN,TOTAL 0.2 mg/dL (0.2-1.3); BLOOD UREA NITROGEN 23 mg/dL (7-20); CALCIUM 9.3 mg/dL (8.4-10.2); CARBON DIOXIDE 27 mmol/L (22-30); CHLORIDE 102 mmol/L (98-107); GLUCOSE 122 mg/dL (75-110); POTASSIUM 4.7 mmol/L (3.6-5.0); TOTAL PROTEIN 7.1 g/dL (6.3-8.2)
[2018-10-04] MEDS: MUPIROCIN 2% OINTMENT 22 GM TP SCH ×2 (09:32→17:13)
[2018-10-04] MEDS: LACTOBACILLUS ACIDOPHILUS 250 MG TAB PO SCH ×2 (09:32→17:12)
[2018-10-04] MEDS: NORMAL SALINE 10 ML SDV (SCHEDULED) IV SCH ×2 (09:33→21:55)
[2018-10-04] MEDS: DOCUSATE SODIUM 100 MG CAPSULE PO SCH ×2 (09:33→17:28)
[2018-10-04] MEDS: FAMOTIDINE 20 MG TABLET PO SCH ×2 (09:33→21:51)
[2018-10-04] MEDS: SODIUM CHLORIDE NASAL SPRAY 44 ML NASL SCH ×3 (09:33→17:12)
--- NOTE | 2018-10-04 12:26 | PDOC PROGRESS REPORT ---
Subjective Progress Note for:: 10/04/18 Subjective:: 33-year-old male with past medical history significant only for tobacco dependency who was admitted 09/23/18 for no cellulitis with potential abscess formation noted on CT scan. ENT has been consulted; s/p I&D with surgical drains in place. Patient was seen on morning rounds. He was found resting in bed comfortably on room air. He reports improved nasal/facial tenderness. Edema has resolved. He reports headaches are less frequency and intense; responding well to Fioricet and Motrin. He denies fever, chills, body aches, chest pain, palpitations, dyspnea, ort hopnea, abdominal pain, nausea and vomiting. Has a good appetite. He has no other questions or concerns. No concerns per nursing. 10/01/[id number]-ebfa-old male admitted with sepsis status post I/D done by ENT. Surgical drains are in place. No acute events in the last 24 hours. Afebrile. 10/02/[id number]-pnvg-old male admitted with sepsis status post I/D done by the ENT. Surgical drains are removed from the nostrils yesterday. Patient is afebrile. He is on IV vancomycin and he has a PICC line. He is going to [facility] on Sunday for JOE. WBC count came down to 10.5 today. pt is comfortable in the bed communicating well no complaints. 10/03/[id number]-gssm-old male admitted with abscess noted on the CT scan ENT did the I&D later on surgical drains are removed from the nostril patient is doing well cultures came back positive for MRSA he is on IV vancomycin he has a PICC line tomorrow he is going to [facility] for JOE. No acute events in last 24 hours and afebrile. 10/04/[id number]-ctdr-old male admitted with nasal cellulitis and abscess status post I/D and surgical drains placement subsequently surgical drains are removed by the ENT. Patient went to [facility] for echocardiogram today. No acute events in the last 24 hours. Afebrile. Reason For Visit: FACIAL CELLULITIS Physical Exam Vital Signs: Temp Pulse Resp BP Pulse Ox 98.0 F 85 18 129/86 H 97 10/04/18 00:02 10/04/18 00:02 10/04/18 00:02 10/04/18 00:02 10/04/18 00:02 Intake & Output 10/03/18 10/04/18 10/05/18 06:59 06:59 06:59 Intake Total 2510 1454 250 Balance 2510 1454 250 Weight 77.1 kg 78.9 kg General appearance: PRESENT: no acute distress Head exam: PRESENT: atraumatic Eye exam: PRESENT: PERRLA Mouth exam: PRESENT: dry mucosa Teeth exam: PRESENT: poor dentation Neck exam: ABSENT: carotid bruit, JVD, lymphadenopathy, thyromegaly Respiratory exam: PRESENT: decreased breath sounds Cardiovascular exam: PRESENT: RRR. ABSENT: diastolic murmur, rubs, systolic murmur Pulses: PRESENT: normal dorsalis pedis pul GI/Abdominal exam: PRESENT: normal bowel sounds, soft. ABSENT: distended, guarding, mass, organolmegaly, rebound, tenderness Rectal exam: PRESENT: deferred Extremities exam: PRESENT: full ROM. ABSENT: calf tenderness, clubbing, pedal edema Neurological exam: PRESENT: alert, awake, oriented to person, oriented to place, oriented to time, oriented to situation, CN II-XII grossly intact. ABSENT: motor sensory deficit Psychiatric exam: PRESENT: appropriate affect, normal mood. ABSENT: homicidal ideation, suicidal ideation Results Laboratory Results: 10/04/18 05:42 10/04/18 05:42 10/04/18 10/04/18 05:42 05:42 WBC 9.9 RBC 4.38 Hgb 14.0 Hct 41.1 MCV 94 MCH 31.9 MCHC 34.1 RDW 12.9 Plt Count 376 Seg Neutrophils % 66.1 Lymphocytes % 22.1 Monocytes % 9.8 Eosinophils % 1.1 Basophils % 0.9 Absolute Neutrophils 6.5 Absolute Lymphocytes 2.2 Absolute Monocytes 1.0 Absolute Eosinophils 0.1 Absolute Basophils 0.1 Sodium 139.1 Potassium 4.7 Chloride 102 Carbon Dioxide 27 Anion Gap 10 BUN 23 H Creatinine 0.70 Est GFR ( Amer) > 60 Est GFR (Non-Af Amer) > 60 Glucose 122 H Calcium 9.3 Magnesium 2.1 Total Bilirubin 0.2 AST 39 ALT 96 H Alkaline Phosphatase 122 Total Protein 7.1 Albumin 3.9 Impressions: Chest X-Ray 09/23/18 18:28 IMPRESSION: NO ACUTE RADIOGRAPHIC FINDING IN THE CHEST. Facial Bones CT 09/23/18 19:00 IMPRESSION: 1. Prominent soft tissue swelling peripheral and deep to the nasal bones and the nasal cartilage. Study performed with IV contrast and includes area of enhancement possibly normal or inflamed cartilage and areas of low density possibly pus or simple fluid/mucus. Soft tissue swelling extends in the midline into the nasal cavity. Most prominent anteriorly but causes soft tissue thickening adjacent to the nasal septum. The nasal turbinates are not enlarged. 2. Relative mild sinus disease. No obvious destructive bone changes. 3. Mild prominence of the adenoids. Guidance Fluoroscopy 09/30/18 00:00 IMPRESSION: SUCCESSFUL PLACEMENT OF A 5 FR DUAL LUMEN 27 CM PICC IN THE LEFT BASILIC VEIN. Interventional Vascular Procedure 09/30/18 00:00 IMPRESSION: SUCCESSFUL PLACEMENT OF A 5 FR DUAL LUMEN 27 CM PICC IN THE LEFT BASILIC VEIN. PICC Line Insertion 09/30/18 07:00 IMPRESSION: SUCCESSFUL PLACEMENT OF A 5 FR DUAL LUMEN 27 CM PICC IN THE LEFT BASILIC VEIN. Assessment and Plan - Diagnosis (1) Bacteremia Is this a current diagnosis for this admission?: Yes Plan: Blood cultures are positive for MDR MRSA (2/4 bottles). Repeat cultures (09/25/18) negative Multiple Wound cultures growing MDR MRSA. Echocardiogram completed; no obvious vegetations, however, belt polisher at [facility] is recommending follow up JOE. He does confirm a history of MRSA but denies IV drug use. No heart valves or orthopedic prosthetics present. Patient did initially present in [facility] custody. D/c planning reports patient does have previous drug related charges; therefore will need to keep in-house for completion of antibiotic therapy. Discussed w/ Dr. Garcia, [facility]. Recommends 2 weeks IV Vancomycin or Daptomycin; end date 10/09 pending JOE results. Have called [facility] to arrange JOE; awaiting call back w/ appointment. Continue IV Vanc. Discharge planning is consulted. 10/01/2018-blood cultures are positive for MRSA he is on IV vancomycin. Echocardiogram was normal study. ID is on board. Plan is to continue IV antibiotic therapy. We could to get in touch with [facility] again for JOE. 10/02/2018-blood cultures are positive for MRSA presently patient is on IV vancomycin transthoracic echocardiogram done here is normal study. Patient is going to [facility] on Sunday for a JOE. 10/03/2018-blood cultures positive for MRSA on IV vancomycin. Is going for a JOE at [facility] tomorrow. 10/04/2018-patient has a PICC line blood cultures positive for MRSA on IV vanco mycin. He went to [facility] this morning for a JOE. (2) Nose cellulitis Is this a current diagnosis for this admission?: Yes (3) Hypertension Is this a current diagnosis for this admission?: Yes Plan: Improved HTN with start of amlodipine Continue amlodipine 10 mg qHS. Analgesics as needed. 10/01/2018- bp is 148/90 on amlodepine 10 mg po daily plan to continue present treatment. 10/02/2018-blood pressure today is 147/90 on amlodipine 10 mg p.o. daily plan is to continue the present management. 10/03/2018-patient blood pressure today is 156/88 on amlodipine 10 mg p.o. daily plan to add lisinopril 5 mg p.o. nightly. 10/04/2018-patient blood pressure this morning is 129/86 stable.
[2018-10-04] MEDS: LISINOPRIL 5 MG TABLET PO SCH (13:48)
[2018-10-04] MEDS: OXYCODONE-ACETAMINOPHEN 5-325 MG TABLET PO PRN (17:14)
[2018-10-04] MEDS: AMLODIPINE BESYLATE 10 MG TABLET PO SCH (21:51)
[2018-10-05] MEDS: BUTALB/ACETAMINOPHEN/CAFFEINE 1 TAB EACH PO PRN (00:38)
[2018-10-05] MEDS: VANCOMYCIN HCL 1,500 MG in DEXTROSE 5%-WATER 250 ML IV SCH ×2 (06:32→16:18)
[2018-10-05] MEDS: HEPARIN SOD (PORCINE) 5,000 UNIT/ML 1 ML VIAL SUBCUT SCH ×2 (06:33→16:08)
[2018-10-05] MEDS: DOCUSATE SODIUM 100 MG CAPSULE PO SCH ×2 (11:21→17:53)
[2018-10-05] MEDS: SODIUM CHLORIDE NASAL SPRAY 44 ML NASL SCH ×3 (11:21→17:53)
[2018-10-05] MEDS: FAMOTIDINE 20 MG TABLET PO SCH (11:31)
[2018-10-05] MEDS: MUPIROCIN 2% OINTMENT 22 GM TP SCH ×2 (11:31→17:52)
[2018-10-05] MEDS: NORMAL SALINE 10 ML SDV (SCHEDULED) IV SCH (11:31)
[2018-10-05] MEDS: LACTOBACILLUS ACIDOPHILUS 250 MG TAB PO SCH ×2 (11:31→17:56)
[2018-10-05] MEDS: LISINOPRIL 5 MG TABLET PO SCH (11:32)
--- NOTE | 2018-10-05 11:41 | PDOC PROGRESS REPORT ---
Subjective Progress Note for:: 10/05/18 Subjective:: 33-year-old male with past medical history significant only for tobacco dependency who was admitted 09/23/18 for no cellulitis with potential abscess formation noted on CT scan. ENT has been consulted; s/p I&D with surgical drains in place. Patient was seen on morning rounds. He was found resting in bed comfortably on room air. He reports improved nasal/facial tenderness. Edema has resolved. He reports headaches are less frequency and intense; responding well to Fioricet and Motrin. He denies fever, chills, body aches, chest pain, palpitations, dyspnea, ort hopnea, abdominal pain, nausea and vomiting. Has a good appetite. He has no other questions or concerns. No concerns per nursing. 10/01/[id number]-ndav-old male admitted with sepsis status post I/D done by ENT. Surgical drains are in place. No acute events in the last 24 hours. Afebrile. 10/02/[id number]-oloa-old male admitted with sepsis status post I/D done by the ENT. Surgical drains are removed from the nostrils yesterday. Patient is afebrile. He is on IV vancomycin and he has a PICC line. He is going to [facility] on Sunday for JOE. WBC count came down to 10.5 today. pt is comfortable in the bed communicating well no complaints. 10/03/[id number]-lbov-old male admitted with abscess noted on the CT scan ENT did the I&D later on surgical drains are removed from the nostril patient is doing well cultures came back positive for MRSA he is on IV vancomycin he has a PICC line tomorrow he is going to [facility] for JOE. No acute events in last 24 hours and afebrile. 10/04/[id number]-ualf-old male admitted with nasal cellulitis and abscess status post I/D and surgical drains placement subsequently surgical drains are removed by the ENT. Patient went to [facility] for echocardiogram today. No acute events in the last 24 hours. Afebrile. 10/05/[id number]-qwno-old male admitted with nasal cellulitis abscess was noticed on the CT scan ENT consult was done status post incision and drainage was done surgical tubes later on removed. Patient went to [facility] for a JOE no veg etation was noticed. Patient is presently on IV vancomycin stop date as per the ID is 10/09/2018. Reason For Visit: FACIAL CELLULITIS Physical Exam Vital Signs: Temp Pulse Resp BP Pulse Ox 97.7 F 85 18 138/83 H 100 10/05/18 00:26 10/05/18 00:26 10/05/18 00:26 10/05/18 00:26 10/05/18 00:26 Intake & Output 10/04/18 10/05/18 10/06/18 06:59 06:59 06:59 Intake Total 1454 2378 Balance 1454 2378 Weight 78.9 kg 78 kg General appearance: PRESENT: no acute distress Head exam: PRESENT: atraumatic Eye exam: PRESENT: PERRLA Mouth exam: PRESENT: moist, tongue midline Neck exam: ABSENT: carotid bruit, JVD, lymphadenopathy, thyromegaly Respiratory exam: PRESENT: clear to auscultation saida. ABSENT: rales, rhonchi, wheezes Cardiovascular exam: PRESENT: RRR. ABSENT: diastolic murmur, rubs, systolic murmur GI/Abdominal exam: PRESENT: normal bowel sounds, soft. ABSENT: distended, guarding, mass, organolmegaly, rebound, tenderness Rectal exam: PRESENT: deferred Neurological exam: PRESENT: alert, awake, oriented to person, oriented to place, oriented to time, oriented to situation, CN II-XII grossly intact. ABSENT: motor sensory deficit Psychiatric exam: PRESENT: appropriate affect, normal mood. ABSENT: homicidal ideation, suicidal ideation Results Laboratory Results: 10/04/18 05:42 10/04/18 05:42 Impressions: Chest X-Ray 09/23/18 18:28 IMPRESSION: NO ACUTE RADIOGRAPHIC FINDING IN THE CHEST. Facial Bones CT 09/23/18 19:00 IMPRESSION: 1. Prominent soft tissue swelling peripheral and deep to the nasal bones and the nasal cartilage. Study performed with IV contrast and includes area of enhancement possibly normal or inflamed cartilage and areas of low density possibly pus or simple fluid/mucus. Soft tissue swelling extends in the midline into the nasal cavity. Most prominent anteriorly but causes soft tissue thickening adjacent to the nasal septum. The nasal turbinates are not enlarged. 2. Relative mild sinus disease. No obvious destructive bone changes. 3. Mild prominence of the adenoids. Guidance Fluoroscopy 09/30/18 00:00 IMPRESSION: SUCCESSFUL PLACEMENT OF A 5 FR DUAL LUMEN 27 CM PICC IN THE LEFT BASILIC VEIN. Interventional Vascular Procedure 09/30/18 00:00 IMPRESSION: SUCCESSFUL PLACEMENT OF A 5 FR DUAL LUMEN 27 CM PICC IN THE LEFT BASILIC VEIN. PICC Line Insertion 09/30/18 07:00 IMPRESSION: SUCCESSFUL PLACEMENT OF A 5 FR DUAL LUMEN 27 CM PICC IN THE LEFT BASILIC VEIN. Assessment and Plan - Diagnosis (1) Bacteremia Is this a current diagnosis for this admission?: Yes Plan: Blood cultures are positive for MDR MRSA (2/4 bottles). Repeat cultures (09/25/18) negative Multiple Wound cultures growing MDR MRSA. Echocardiogram completed; no obvious vegetations, however, social security benefits interviewer at [facility] is recommending follow up JOE. He does confirm a history of MRSA but denies IV drug use. No heart valves or orthopedic prosthetics present. Patient did initially present in [facility] custody. D/c planning reports patient does have previous drug related charges; therefore will need to keep in-house for completion of antibiotic therapy. Discussed w/ Dr. Garcia, ID. Recommends 2 weeks IV Vancomycin or Daptomycin; end date 10/09 pending JOE results. Have called [facility] to arrange JOE; awaiting call back w/ appointment. Continue IV Vanc. Discharge planning is consulted. 10/01/2018-blood cultures are positive for MRSA he is on IV vancomycin. Echocardiogram was normal study. ID is on board. Plan is to continue IV antibiotic therapy. We could to get in touch with [facility] again for JOE. 10/02/2018-blood cultures are positive for MRSA presently patient is on IV vancomycin transthoracic echocardiogram done here is normal study. Patient is going to [facility] on Sunday for a JOE. 10/03/2018-blood cultures positive for MRSA on IV vancomycin. Is going for a JOE at [facility] tomorrow. 10/04/2018-patient has a PICC line blood cultures positive for MRSA on IV vancomycin. He went to [facility] this morning for a JOE. 10/05/2018-patient has a PICC line blood cultures are positive for MRSA he is on IV vancomycin to complete the course on 10/09/2018. JOE came back negative for vegetation. (2) Nose cellulitis Is this a current diagnosis for this admission?: Yes (3) Hypertension Is this a current diagnosis for this admission?: Yes Plan: Improved HTN with start of amlodipine Continue amlodipine 10 mg qHS. Analgesics as needed. 10/01/2018- bp is 148/90 on amlodepine 10 mg po daily plan to continue present treatment. 10/02/2018-blood pressure today is 147/90 on amlodipine 10 mg p.o. daily plan is to continue the present management. 10/03/2018-patient blood pressure today is 156/88 on amlodipine 10 mg p.o. daily plan to add lisinopril 5 mg p.o. nightly. 10/04/2018-patient blood pressure this morning is 129/86 stable. 10/05/2018-patient blood pressure today is 138/3083. Stable. Plan is to continu e the present management which is amlodipine 10 mg daily and lisinopril 5 mg daily.
[2018-10-06] MEDS: AMLODIPINE BESYLATE 10 MG TABLET PO SCH ×2 (00:14→22:22)
[2018-10-06] MEDS: VANCOMYCIN HCL 1,500 MG in DEXTROSE 5%-WATER 250 ML IV SCH ×4 (00:14→22:22)
[2018-10-06] MEDS: FAMOTIDINE 20 MG TABLET PO SCH ×3 (00:15→22:22)
[2018-10-06] MEDS: NORMAL SALINE 10 ML SDV (SCHEDULED) IV SCH ×3 (00:15→22:21)
[2018-10-06] MEDS: FLUTICASONE NASAL SPRAY 50 MCG/SPRY 120 SPRAY/16 GM NASL SCH ×3 (00:18→22:21)
[2018-10-06] MEDS: HEPARIN SOD (PORCINE) 5,000 UNIT/ML 1 ML VIAL SUBCUT SCH ×4 (00:19→22:09)
[2018-10-06 07:23] LABS: VANCOMYCIN,TROUGH 19.4 ug/mL (5.0-20.0)
[2018-10-06] MEDS: IBUPROFEN 800 MG TABLET PO PRN (08:48)
[2018-10-06] MEDS: LACTOBACILLUS ACIDOPHILUS 250 MG TAB PO SCH ×2 (09:00→17:14)
[2018-10-06] MEDS: MUPIROCIN 2% OINTMENT 22 GM TP SCH ×2 (09:00→17:15)
[2018-10-06] MEDS: DOCUSATE SODIUM 100 MG CAPSULE PO SCH ×2 (09:00→17:10)
[2018-10-06] MEDS: LISINOPRIL 5 MG TABLET PO SCH (09:01)
[2018-10-06] MEDS: SODIUM CHLORIDE NASAL SPRAY 44 ML NASL SCH ×3 (09:01→17:16)
--- NOTE | 2018-10-06 10:15 | PDOC PROGRESS REPORT ---
Subjective Progress Note for:: 10/06/18 Subjective:: 33-year-old male with past medical history significant only for tobacco dependency who was admitted 09/23/18 for no cellulitis with potential abscess formation noted on CT scan. ENT has been consulted; s/p I&D with surgical drains in place. Patient was seen on morning rounds. He was found resting in bed comfortably on room air. He reports improved nasal/facial tenderness. Edema has resolved. He reports headaches are less frequency and intense; responding well to Fioricet and Motrin. He denies fever, chills, body aches, chest pain, palpitations, dyspnea, ort hopnea, abdominal pain, nausea and vomiting. Has a good appetite. He has no other questions or concerns. No concerns per nursing. 10/01/[id number]-pcdc-old male admitted with sepsis status post I/D done by ENT. Surgical drains are in place. No acute events in the last 24 hours. Afebrile. 10/02/20181725-29-qldk-old male admitted with sepsis status post I/D done by the ENT. Surgical drains are removed from the nostrils yesterday. Patient is afebrile. He is on IV vancomycin and he has a PICC line. He is going to [facility] on Sunday for JOE. WBC count came down to 10.5 today. pt is comfortable in the bed communicating well no complaints. 10/03/20184563-54-dopn-old male admitted with abscess noted on the CT scan ENT did the I&D later on surgical drains are removed from the nostril patient is doing well cultures came back positive for MRSA he is on IV vancomycin he has a PICC line tomorrow he is going to [facility] for JOE. No acute events in last 24 hours and afebrile. 10/04/20188530-81-dowv-old male admitted with nasal cellulitis and abscess status post I/D and surgical drains placement subsequently surgical drains are removed by the ENT. Patient went to [facility] for echocardiogram today. No acute events in the last 24 hours. Afebrile. 10/05/20186970-95-fpcx-old male admitted with nasal cellulitis abscess was noticed on the CT scan ENT consult was done status post incision and drainage was done surgical tubes later on removed. Patient went to [facility] for a JOE no veg etation was noticed. Patient is presently on IV vancomycin stop date as per the ID is 10/09/2018. 10/06/20183662-45-ngjn-old male with history of drug abuse admitted with nasal ab scess status post incision and drainage done by the ENT later on surgical drains are removed he went for the echocardiogram in [facility] noted vegetation was found. Patient is presently on IV vancomycin for MRSA. As per ID stop date is 10/09/2018. Since yesterday patient is complaining of stuffy nose is getting Flonase at this time. Afebrile T-max is 98.6. Reason For Visit: FACIAL CELLULITIS Physical Exam Vital Signs: Temp Pulse Resp BP Pulse Ox 97.6 F 80 16 129/91 H 100 10/06/18 07:00 10/06/18 07:00 10/06/18 07:00 10/06/18 07:00 10/06/18 07:00 Intake & Output 10/05/18 10/06/18 10/07/18 06:59 06:59 06:59 Intake Total 2378 2258 Output Total 1900 Balance 2378 358 Weight 78 kg 78.1 kg General appearance: PRESENT: no acute distress Head exam: PRESENT: atraumatic Eye exam: PRESENT: PERRLA Mouth exam: PRESENT: moist, tongue midline Teeth exam: PRESENT: poor dentation Neck exam: PRESENT: carotid bruit Respiratory exam: PRESENT: clear to auscultation saida. ABSENT: rales, rhonchi, wheezes Cardiovascular exam: PRESENT: RRR. ABSENT: diastolic murmur, rubs, systolic murmur GI/Abdominal exam: PRESENT: normal bowel sounds, soft. ABSENT: distended, guarding, mass, organolmegaly, rebound, tenderness Rectal exam: PRESENT: deferred Extremities exam: PRESENT: full ROM. ABSENT: calf tenderness, clubbing, pedal edema Neurological exam: PRESENT: alert, awake, oriented to person, oriented to place, oriented to time, oriented to situation, CN II-XII grossly intact. ABSENT: motor sensory deficit Psychiatric exam: PRESENT: appropriate affect, normal mood. ABSENT: homicidal ideation, suicidal ideation Results Laboratory Results: 10/04/18 05:42 10/06/18 05:45 10/06/18 05:45 Creatinine 0.69 Est GFR ( Amer) > 60 Est GFR (Non-Af Amer) > 60 Impressions: Chest X-Ray 09/23/18 18:28 IMPRESSION: NO ACUTE RADIOGRAPHIC FINDING IN THE CHEST. Facial Bones CT 09/23/18 19:00 IMPRESSION: 1. Prominent soft tissue swelling peripheral and deep to the nasal bones and the nasal cartilage. Study performed with IV contrast and includes area of enhancement possibly normal or inflamed cartilage and areas of low density possibly pus or simple fluid/mucus. Soft tissue swelling extends in the midline into the nasal cavity. Most prominent anteriorly but causes soft tissue thickening adjacent to the nasal septum. The nasal turbinates are not enlarged. 2. Relative mild sinus disease. No obvious destructive bone changes. 3. Mild prominence of the adenoids. Guidance Fluoroscopy 09/30/18 00:00 IMPRESSION: SUCCESSFUL PLACEMENT OF A 5 FR DUAL LUMEN 27 CM PICC IN THE LEFT BASILIC VEIN. Interventional Vascular Procedure 09/30/18 00:00 IMPRESSION: SUCCESSFUL PLACEMENT OF A 5 FR DUAL LUMEN 27 CM PICC IN THE LEFT BASILIC VEIN. PICC Line Insertion 09/30/18 07:00 IMPRESSION: SUCCESSFUL PLACEMENT OF A 5 FR DUAL LUMEN 27 CM PICC IN THE LEFT BASILIC VEIN. Assessment and Plan - Diagnosis (1) Bacteremia Is this a current diagnosis for this admission?: Yes Plan: Blood cultures are positive for MDR MRSA (2/4 bottles). Repeat cultures (09/25/18) negative Multiple Wound cultures growing MDR MRSA. 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 He does confirm a history of MRSA but denies IV drug use. No heart valves or orthopedic prosthetics present. Patient did initially present in [facility] custody. D/c planning reports patient does have previous drug related charges; therefore will need to keep in-house for completion of antibiotic therapy. Discussed w/ Dr. Garcia, [facility]. Recommends 2 weeks IV Vancomycin or Daptomycin; end date 10/09 pending JOE results. Have called [facility] to arrange JOE; awaiting call back w/ appointment. Continue IV Vanc. Discharge planning is consulted. 10/01/2018-blood cultures are positive for MRSA he is on IV vancomycin. Echocardiogram was normal study. ID is on board. Plan is to continue IV antibiotic therapy. We could to get in touch with [facility] again for JOE. 10/02/2018-blood cultures are positive for MRSA presently patient is on IV vancomycin transthoracic echocardiogram done here is normal study. Patient is going to [facility] on Sunday for a JOE. 10/03/2018-blood cultures positive for MRSA on IV vancomycin. Is going for a JOE at [facility] tomorrow. 10/04/2018-patient has a PICC line blood cultures positive for MRSA on IV vanc omycin. He went to [facility] this morning for a JOE. 10/05/2018-patient has a PICC line blood cultures are positive for MRSA he is on IV vancomycin to complete the course on 10/09/2018. JOE came back negative for vegetation. 10/06/2018-patient is receiving IV vancomycin for MRSA. To continue IV antibiotics until 10/09/2018. (2) Nose cellulitis Is this a current diagnosis for this admission?: Yes Plan: Now s/p surgical I&D by ENT. Blood cultures are positive for MDR MRSA. Repeat cultures (09/25/18) are negative at 4 days. Multiple Wound cultures growing MDR MRSA. Patient is admitted to the medical floor. Continue IV vancomycin ENT is consulted; spoke w/ office today. Dr. Garcia will see patient to remove drains (likely today) Analgesics as needed. 10/01/2018-status post ID done by ENT. Cultures are positive for MRSA and IV vancomycin. dr delacruz on board. 10/02/2018-surgical drains are removed from the nostrils yesterday. No complaints from the patient today. 10/03/2018-I&D was done by ENT later on surgical drains are removed patient is afebrile presently on IV vancomycin. 10/06/2018-patient admitted with abscess and nasal cellulitis status post incision and drainage done by the ENT later on the surgical drains are removed successfully echocardiogram was negative for vegetation patient is on IV vancomycin to complete the course on 10/09/2018. Patient is going to stay in the hospital for completion of the antibiotic course. (3) Hypertension Is this a current diagnosis for this admission?: Yes Plan: Improved HTN with start of amlodipine Continue amlodipine 10 mg qHS. Analgesics as needed. 10/01/2018- bp is 148/90 on amlodepine 10 mg po daily plan to continue present treatment. 10/02/2018-blood pressure today is 147/90 on amlodipine 10 mg p.o. daily plan is to continue the present management. 10/03/2018-patient blood pressure today is 156/88 on amlodipine 10 mg p.o. daily plan to add lisinopril 5 mg p.o. nightly. 10/04/2018-patient blood pressure this morning is 129/86 stable. 10/05/2018-patient blood pressure today is 138/3083. Stable. Plan is to continue the present management which is amlodipine 10 mg daily and lisinopril 5 mg daily. 10/09/2018-patient blood pressure today is 126/87. Stable. Plan is to continue the present management. - Time Time Spent with patient: 25-34 minutes Smoking Cessation Education: over 10 minutes Medications reviewed and adjusted accordingly: Yes Anticipated discharge: Home
[2018-10-06] MEDS: BUTALB/ACETAMINOPHEN/CAFFEINE 1 TAB EACH PO PRN (22:21)
[2018-10-07] MEDS: HEPARIN SOD (PORCINE) 5,000 UNIT/ML 1 ML VIAL SUBCUT SCH ×3 (05:24→21:07)
[2018-10-07] MEDS: VANCOMYCIN HCL 1,500 MG in DEXTROSE 5%-WATER 250 ML IV SCH ×3 (06:05→21:19)
[2018-10-07 06:15] LABS: ABSOLUTE BASOPHILS # (AUTO) 0.1 10^3/uL (0.0-0.2); ABSOLUTE EOSINOPHILS # (AUTO) 0.1 10^3/uL (0.0-0.6); ABSOLUTE LYMPHOCYTES (AUTO) 1.7 10^3/uL (0.5-4.7); ABSOLUTE MONOCYTES (AUTO) 0.7 10^3/uL (0.1-1.4); ABSOLUTE NEUT (AUTO) 3.8 10^3/uL (1.7-8.2); BASOPHILS % (AUTO) 0.9 % (0-2); EOSINOPHILS % (AUTO) 2.2 % (0-6); HEMATOCRIT 41.1 % (37.9-51.0); LYMPHOCYTES % (AUTO) 26.6 % (13-45); MEAN CORPUSCULAR HEMOGLOBIN 31.5 pg (27.0-33.4); MEAN CORPUSCULAR VOLUME 93 fl (80-97); PLATELET COUNT 361 10^3/uL (150-450); RED BLOOD COUNT 4.45 10^6/uL (4.35-5.55); RED CELL DISTRIBUTION WIDTH 12.6 % (11.5-14.0); SEGMENTED NEUTROPHILS % (AUTO) 59.3 % (42-78); TOTAL CELLS COUNTED % (AUTO) 100 %; WHITE BLOOD COUNT 6.4 10^3/uL (4.0-10.5)
[2018-10-07 06:34] LABS: ALANINE AMINOTRANSFERASE 95 U/L (21-72); ALBUMIN 4.2 g/dL (3.5-5.0); ALKALINE PHOSPHATASE 92 U/L (38-126); ANION GAP 10 (5-19); ASPARTATE AMINO TRANSFERASE 43 U/L (17-59); BILIRUBIN,DIRECT 0.2 mg/dL (0.0-0.4); BILIRUBIN,TOTAL 0.4 mg/dL (0.2-1.3); BLOOD UREA NITROGEN 16 mg/dL (7-20); CALCIUM 9.7 mg/dL (8.4-10.2); CARBON DIOXIDE 27 mmol/L (22-30); CHLORIDE 102 mmol/L (98-107); GLUCOSE 127 mg/dL (75-110); POTASSIUM 4.4 mmol/L (3.6-5.0); TOTAL PROTEIN 7.5 g/dL (6.3-8.2)
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
--- NOTE | 2018-10-07 07:05 | OPERATIVE REPORT E ---
Operative Report NAME: VERONICA GORDON : 1985 AGE: 33Y DATE OF SURGERY: 09/23/2018 ROOM: 528 PREOPERATIVE DIAGNOSES: 1. Complex nasal septal abscess that is separate. 2. Complex nasal abscesses that are separate. 3. Acute nasal cellulitis. 4. Acute nasal and facial pain. 5. History of facial/nasal MRSA abscess. POSTOPERATIVE DIAGNOSES: 1. Complex nasal septal abscess that is separate. 2. Complex nasal abscesses that are separate. 3. Acute nasal cellulitis. 4. Acute nasal and facial pain. 5. History of facial/nasal MRSA abscess. OPERATIONS PERFORMED: 1. Complex management of the nasal septal abscess that was separate. 2. Complex management of the nasal abscesses that were separate. 3. Washout and debridement of the abscesses and there was also irrigation with bacitracin solution. SURGEON: EVARISTO AMEZCUA D.O. ANESTHETIC: General endotracheal tube. ANESTHESIA STAFF: Jeremías OLIVAS ESTIMATED BLOOD LOSS: 10 mL. FLUIDS: 1100 mL. COMPLICATIONS: None. DRAINS: There were 4 modified Leona drains placed within the patient's nose that were sewn in place. SPECIMENS: There were multiple wound cultures taken consisting of purulence that was passed off for aerobic and anaerobic cultures. 2. There were necrotic pieces of cartilage that were passed off from the area of the nasal septum as well as the left upper lateral/lower lateral cartilage distribution that was sent for cartilage rule out and for culturing. FINDINGS: 1. There was significant nasal/paranasal fullness/swelling/edema with cellulitic changes and the appearance of Bactroban ointment within the nasal passages. The nasal passages could not be visualized due to severe swelling that was noted. 2. There was extensive purulence that was released from the patient's nose in general throughout the alar/upper lateral/nasal dorsum that extended over the nasal bones. 3. There was extensive purulence that was released from the patient's nasal septum. 4. There was extensive necrotic tissue within the area of the nasal septum and within the nasal abscesses. There was significant concern for necrotic cartilage being present within this tissue. 5. There was severe loss of nasal septal cartilage as well as alar and upper lateral cartilage. The patient's nose was notable and there was concern for a future saddle deformity once the purulence had been released from the nasal and septal abscesses. INDICATIONS: This is a 33-year-old -[place] male who was seen and evaluated as a consult request in [facility]. Please see the patient's ENT consult dictation for additional details. The patient was incarcerated at the time that he was brought to the [facility] Emergency Room for evaluation of a nasal infectious process. The patient had undergone laboratory and radiologic imaging. Concerns and findings are as noted above and within the patient's ENT consult dictation, and within the patient's inpatient chart. There was extensive discussion with the patient the same as had been held with the ER physician and hospitalist service for definitive management in the main operating room. The procedures and all of their risks and complications were all discussed in detail with the patient, which he voiced an understanding of, agreed with, and desired to proceed with. DESCRIPTION OF PROCEDURE: The patient was taken to the main operating room and was placed on the operating room table in the supine position. Appropriate monitors were placed. Using mask and IV access, general anesthesia was induced. The patient was transorally intubated without difficulty. The patient was then positioned and prepped for nasal surgery. The patient underwent a nasal examination with injection of local anesthetic with epinephrine and had 2 Afrin-soaked neuro patties placed per nasal passage. At this point, the patient was prepped and draped in the usual fashion for nasal surgery. The Afrin-soaked neuro patties were removed. At this point, a #15 blade scalpel was used to make incisions at the left marginal aspect and right intercartilaginous aspect, and at the left hemitransfixion and at the right *------* incision distributions. There was significant amounts of purulence that was released from all of these locations. Cultures were taken as noted above. A pair of Ruben scissors was used to dissect and release abscess pockets. There were significant amounts of purulence and necrotic debris that were released during this process. Bacitracin solution was used to thoroughly irrigate the nasal abscess pockets. Tissue was passed off for pathology and evaluation to rule out cartilage as well as for cultures. The patient had 4 modified [place] drains that were placed into the bacitracin solution and then placed into the abscess pocket, 2 per side with 2 extending into the nasal dorsum and 2 extending into the nasal septum between the mucosal flaps. All modified Hartington drains were secured in place with Prolene suture. The patient next had modified Saul silicone splints with bacitracin ointment placed into the nasal passage, 1 per side, and these were secured at the caudal aspect with Prolene suture. The Saul splints had also been wrapped in Surgicel. At this point, the patient's nose was cleaned and dried and he was returned to the anesthesia staff and allowed to emerge from general anesthesia. The patient was extubated in the main operating room and was then transported to the postanesthesia recovery unit in stable condition. There were no complications. DICTATING PHYSICIAN: EVARISTO AMEZCUA D.O. [id number] PHY#: [id number] ID: [id number] JOB#: [id number] ACCT: [id number] cc:EVARISTO AMEZCUA D.O. >
[2018-10-07] MEDS: SODIUM CHLORIDE NASAL SPRAY 44 ML NASL SCH ×3 (09:27→18:31)
[2018-10-07] MEDS: FLUTICASONE NASAL SPRAY 50 MCG/SPRY 120 SPRAY/16 GM NASL SCH ×2 (09:27→21:18)
[2018-10-07] MEDS: LISINOPRIL 5 MG TABLET PO SCH (09:28)
[2018-10-07] MEDS: DOCUSATE SODIUM 100 MG CAPSULE PO SCH ×3 (09:28→18:19)
[2018-10-07] MEDS: FAMOTIDINE 20 MG TABLET PO SCH ×2 (09:28→21:15)
[2018-10-07] MEDS: LACTOBACILLUS ACIDOPHILUS 250 MG TAB PO SCH ×2 (09:28→18:26)
[2018-10-07] MEDS: MUPIROCIN 2% OINTMENT 22 GM TP SCH ×2 (09:38→18:27)
[2018-10-07] MEDS: NORMAL SALINE 10 ML SDV (SCHEDULED) IV SCH ×2 (09:41→21:19)
--- NOTE | 2018-10-07 13:17 | PDOC PROGRESS REPORT ---
Subjective Progress Note for:: 10/07/18 Subjective:: 33-year-old male with past medical history significant only for tobacco dependency who was admitted 09/23/18 for no cellulitis with potential abscess formation noted on CT scan. ENT has been consulted; s/p I&D with surgical drains in place. Patient was seen on morning rounds. He was found resting in bed comfortably on room air. He reports improved nasal/facial tenderness. Edema has resolved. He reports headaches are less frequency and intense; responding well to Fioricet and Motrin. He denies fever, chills, body aches, chest pain, palpitations, dyspnea, ort hopnea, abdominal pain, nausea and vomiting. Has a good appetite. He has no other questions or concerns. No concerns per nursing. 10/01/[id number]-qsky-old male admitted with sepsis status post I/D done by ENT. Surgical drains are in place. No acute events in the last 24 hours. Afebrile. 10/02/[id number]-awak-old male admitted with sepsis status post I/D done by the ENT. Surgical drains are removed from the nostrils yesterday. Patient is afebrile. He is on IV vancomycin and he has a PICC line. He is going to [facility] on Sunday for JOE. WBC count came down to 10.5 today. pt is comfortable in the bed communicating well no complaints. 10/03/[id number]-krny-old male admitted with abscess noted on the CT scan ENT did the I&D later on surgical drains are removed from the nostril patient is doing well cultures came back positive for MRSA he is on IV vancomycin he has a PICC line tomorrow he is going to [facility] for JOE. No acute events in last 24 hours and afebrile. 10/04/[id number]-qgmu-old male admitted with nasal cellulitis and abscess status post I/D and surgical drains placement subsequently surgical drains are removed by the ENT. Patient went to [facility] for echocardiogram today. No acute events in the last 24 hours. Afebrile. 10/05/[id number]-pkhh-old male admitted with nasal cellulitis abscess was noticed on the CT scan ENT consult was done status post incision and drainage was done surgical tubes later on removed. Patient went to [facility] for a JOE no veg etation was noticed. Patient is presently on IV vancomycin stop date as per the ID is 10/09/2018. 10/06/[id number]-wduj-old male with history of drug abuse admitted with nasal ab scess status post incision and drainage done by the ENT later on surgical drains are removed he went for the echocardiogram in [facility] noted vegetation was found. Patient is presently on IV vancomycin for MRSA. As per ID stop date is 10/09/2018. Since yesterday patient is complaining of stuffy nose is getting Flonase at this time. Afebrile T-max is 98.6. 10/07/[id number]-buuv-old male admitted with abscess status post incision and drainage done by the ENT letter and surgical drains are removed, blood cultures came back positive for MRSA he is receiving IV vancomycin he went to [facility] last Sunday and JOE is negative for vegetation. Reason For Visit: FACIAL CELLULITIS Physical Exam Vital Signs: Temp Pulse Resp BP Pulse Ox 97.7 F 80 20 134/81 H 100 10/07/18 13:03 10/07/18 13:03 10/07/18 13:03 10/07/18 13:03 10/07/18 13:03 Intake & Output 10/06/18 10/07/18 10/08/18 06:59 06:59 06:59 Intake Total 2258 1666 Output Total 1900 Balance 358 1666 Weight 78.1 kg 77.8 kg General appearance: PRESENT: no acute distress Head exam: PRESENT: atraumatic Eye exam: PRESENT: PERRLA Mouth exam: PRESENT: dry mucosa Teeth exam: PRESENT: poor dentation Neck exam: ABSENT: carotid bruit, JVD, lymphadenopathy, thyromegaly Respiratory exam: PRESENT: accessory muscle use Cardiovascular exam: PRESENT: RRR. ABSENT: diastolic murmur, rubs, systolic murmur Pulses: PRESENT: normal dorsalis pedis pul GI/Abdominal exam: PRESENT: normal bowel sounds, soft. ABSENT: distended, guarding, mass, organolmegaly, rebound, tenderness Rectal exam: PRESENT: deferred Extremities exam: PRESENT: full ROM. ABSENT: calf tenderness, clubbing, pedal edema Neurological exam: PRESENT: alert, awake, oriented to person, oriented to place, oriented to time, oriented to situation, CN II-XII grossly intact. ABSENT: motor sensory deficit Psychiatric exam: PRESENT: appropriate affect, normal mood. ABSENT: homicidal ideation, suicidal ideation Results Laboratory Results: 10/07/18 06:07 10/07/18 06:07 10/07/18 10/07/18 06:07 06:07 WBC 6.4 RBC 4.45 Hgb 14.0 Hct 41.1 MCV 93 MCH 31.5 MCHC 34.0 RDW 12.6 Plt Count 361 Seg Neutrophils % 59.3 Lymphocytes % 26.6 Monocytes % 11.0 Eosinophils % 2.2 Basophils % 0.9 Absolute Neutrophils 3.8 Absolute Lymphocytes 1.7 Absolute Monocytes 0.7 Absolute Eosinophils 0.1 Absolute Basophils 0.1 Sodium 139.4 Potassium 4.4 Chloride 102 Carbon Dioxide 27 Anion Gap 10 BUN 16 Creatinine 0.68 Est GFR ( Amer) > 60 Est GFR (Non-Af Amer) > 60 Glucose 127 H Calcium 9.7 Magnesium 2.0 Total Bilirubin 0.4 AST 43 ALT 95 H Alkaline Phosphatase 92 Total Protein 7.5 Albumin 4.2 Impressions: Chest X-Ray 09/23/18 18:28 IMPRESSION: NO ACUTE RADIOGRAPHIC FINDING IN THE CHEST. Facial Bones CT 09/23/18 19:00 IMPRESSION: 1. Prominent soft tissue swelling peripheral and deep to the nasal bones and the nasal cartilage. Study performed with IV contrast and includes area of enhancement possibly normal or inflamed cartilage and areas of low density possibly pus or simple fluid/mucus. Soft tissue swelling extends in the midline into the nasal cavity. Most prominent anteriorly but causes soft tissue thickening adjacent to the nasal septum. The nasal turbinates are not enlarged. 2. Relative mild sinus disease. No obvious destructive bone changes. 3. Mild prominence of the adenoids. Guidance Fluoroscopy 09/30/18 00:00 IMPRESSION: SUCCESSFUL PLACEMENT OF A 5 FR DUAL LUMEN 27 CM PICC IN THE LEFT BASILIC VEIN. Interventional Vascular Procedure 09/30/18 00:00 IMPRESSION: SUCCESSFUL PLACEMENT OF A 5 FR DUAL LUMEN 27 CM PICC IN THE LEFT BASILIC VEIN. PICC Line Insertion 09/30/18 07:00 IMPRESSION: SUCCESSFUL PLACEMENT OF A 5 FR DUAL LUMEN 27 CM PICC IN THE LEFT BASILIC VEIN. Assessment and Plan - Diagnosis (1) Bacteremia Is this a current diagnosis for this admission?: Yes Plan: Blood cultures are positive for MDR MRSA (2/4 bottles). Repeat cultures (09/25/18) negative Multiple Wound cultures growing MDR MRSA. Echocardiogram completed; no obvious vegetations, however, premises technician at [facility] is recommending follow up JOE. He does confirm a history of MRSA but denies IV drug use. No heart valves or orthopedic prosthetics present. Patient did initially present in [facility] custody. D/c planning reports patient does have previous drug related charges; therefore will need to keep in-house for completion of antibiotic therapy. Discussed w/ ADELA Goodwin. Recommends 2 weeks IV Vancomycin or Daptomycin; end date 10/09 pending JOE results. Have called [facility] to arrange JOE; awaiting call back w/ appointment. Continue IV Vanc. Discharge planning is consulted. 10/01/2018-blood cultures are positive for MRSA he is on IV vancomycin. Echocardiogram was normal study. ID is on board. Plan is to continue IV antibiotic therapy. We could to get in touch with [facility] again for JOE. 10/02/2018-blood cultures are positive for MRSA presently patient is on IV vancomycin transthoracic echocardiogram done here is normal study. Patient is going to [facility] on Sunday for a JOE. 10/03/2018-blood cultures positive for MRSA on IV vancomycin. Is going for a JEO at [facility] tomorrow. 10/04/2018-patient has a PICC line blood cultures positive for MRSA on IV vanc omycin. He went to [facility] this morning for a JOE. 10/05/2018-patient has a PICC line blood cultures are positive for MRSA he is on IV vancomycin to complete the course on 10/09/2018. JOE came back negative for vegetation. 10/06/2018-patient is receiving IV vancomycin for MRSA. To continue IV antibiotics until 10/09/2018. 04/09/2018-patient receiving IV vancomycin for MRSA to continue IV vancomycin until 10/09/2018. (2) Nose cellulitis Is this a current diagnosis for this admission?: Yes Plan: Now s/p surgical I&D by ENT. Blood cultures are positive for MDR MRSA. Repeat cultures (09/25/18) are negative at 4 days. Multiple Wound cultures growing MDR MRSA. Patient is admitted to the medical floor. Continue IV vancomycin ENT is consulted; spoke w/ office today. Dr. Garcia will see patient to remove drains (likely today) Analgesics as needed. 10/01/2018-status post ID done by ENT. Cultures are positive for MRSA and IV vancomycin. dr delacruz on board. 10/02/2018-surgical drains are removed from the nostrils yesterday. No complaints from the patient today. 10/03/2018-I&D was done by ENT later on surgical drains are removed patient is afebrile presently on IV vancomycin. 10/06/2018-patient admitted with abscess and nasal cellulitis status post incision and drainage done by the ENT later on the surgical drains are removed successfully echocardiogram was negative for vegetation patient is on IV vancomycin to complete the course on 10/09/2018. Patient is going to stay in the hospital for completion of the antibiotic course. (3) Hypertension Is this a current diagnosis for this admission?: Yes - Time Time Spent with patient: 25-34 minutes Medications reviewed and adjusted accordingly: Yes Anticipated discharge: Home
[2018-10-07] MEDS: AMLODIPINE BESYLATE 10 MG TABLET PO SCH (21:15)
[2018-10-08] MEDS: HEPARIN SOD (PORCINE) 5,000 UNIT/ML 1 ML VIAL SUBCUT SCH ×3 (06:21→21:57)
[2018-10-08] MEDS: VANCOMYCIN HCL 1,500 MG in DEXTROSE 5%-WATER 250 ML IV SCH ×3 (06:22→22:05)
[2018-10-08] MEDS: SODIUM CHLORIDE NASAL SPRAY 44 ML NASL SCH ×3 (09:17→17:46)
[2018-10-08] MEDS: FLUTICASONE NASAL SPRAY 50 MCG/SPRY 120 SPRAY/16 GM NASL SCH ×2 (09:17→22:05)
[2018-10-08] MEDS: MUPIROCIN 2% OINTMENT 22 GM TP SCH ×2 (09:17→17:46)
[2018-10-08] MEDS: DOCUSATE SODIUM 100 MG CAPSULE PO SCH ×2 (09:18→17:38)
[2018-10-08] MEDS: NORMAL SALINE 10 ML SDV (SCHEDULED) IV SCH ×2 (09:18→22:04)
[2018-10-08] MEDS: LACTOBACILLUS ACIDOPHILUS 250 MG TAB PO SCH ×2 (09:19→17:45)
[2018-10-08] MEDS: FAMOTIDINE 20 MG TABLET PO SCH ×2 (09:20→22:04)
[2018-10-08] MEDS: LISINOPRIL 5 MG TABLET PO SCH (09:21)
[2018-10-08] MEDS: BUTALB/ACETAMINOPHEN/CAFFEINE 1 TAB EACH PO PRN (16:06)
[2018-10-08] MEDS: IBUPROFEN 800 MG TABLET PO PRN (16:07)
--- NOTE | 2018-10-08 18:31 | Progress Note Acknowledgement ---
Progress Note Acknowledgement Progess Note Acknowledgement: I, the undersigned member of the medical staff with appropriate privileges and with supervisory authority over Nereyda Hernandez, a [facility] practice allied health professional, acknowledge that I have reviewed the progress notes entered on this patient, and in my professional judgment believe that the assessment made and/or any care evidenced was appropriate
--- NOTE | 2018-10-08 18:36 | PDOC PROGRESS REPORT ---
Subjective Progress Note for:: 10/08/18 Subjective:: The patient is a 33-year-old male with past medical history significant only for tobacco dependency who was admitted 09/23/18 for no cellulitis with potential abscess formation noted on CT scan. ENT has been consulted; s/p I&D with surgical drains in place. Patient was seen on afternoon rounds. He was found sitting up to the edge of the bed, comfortably on room air, eating lunch. He denies fever, chills, body aches, chest pain, palpitations, dyspnea, orthopnea, abdominal pain, nausea and vomiting. Has a good appetite. He has no other questions or concerns; looking forward to d/c home tomorrow. No concerns per nursing. Reason For Visit: FACIAL CELLULITIS Physical Exam Vital Signs: Temp Pulse Resp BP Pulse Ox 97.5 F 100 16 119/83 100 10/08/18 15:45 10/08/18 15:45 10/08/18 15:45 10/08/18 15:45 10/08/18 15:45 Intake & Output 10/07/18 10/08/18 10/09/18 06:59 06:59 06:59 Intake Total 1666 1955 830 Balance 1666 1955 830 Weight 77.8 kg General appearance: PRESENT: no acute distress, cooperative, well-developed, well-nourished Head exam: PRESENT: atraumatic, normocephalic Eye exam: PRESENT: conjunctiva pink, EOMI, PERRLA. ABSENT: scleral icterus Ear exam: PRESENT: normal external ear exam Mouth exam: PRESENT: moist, tongue midline Neck exam: ABSENT: carotid bruit, JVD, lymphadenopathy, thyromegaly Respiratory exam: PRESENT: clear to auscultation saida, symmetrical, unlabored. ABSENT: rales, rhonchi, wheezes Cardiovascular exam: PRESENT: RRR. ABSENT: diastolic murmur, rubs, systolic murmur Pulses: PRESENT: normal dorsalis pedis pul Vascular exam: PRESENT: normal capillary refill GI/Abdominal exam: PRESENT: normal bowel sounds, soft. ABSENT: distended, guarding, mass, organolmegaly, rebound, tenderness Rectal exam: PRESENT: deferred Extremities exam: PRESENT: full ROM. ABSENT: calf tenderness, clubbing, pedal edema Neurological exam: PRESENT: alert, awake, oriented to person, oriented to place, oriented to time, oriented to situation, CN II-XII grossly intact. ABSENT: motor sensory deficit Psychiatric exam: PRESENT: appropriate affect, normal mood. ABSENT: homicidal ideation, suicidal ideation Skin exam: PRESENT: dry, intact, warm. ABSENT: cyanosis, rash Results Laboratory Results: 10/07/18 06:07 10/07/18 06:07 Impressions: Chest X-Ray 09/23/18 18:28 IMPRESSION: NO ACUTE RADIOGRAPHIC FINDING IN THE CHEST. Facial Bones CT 09/23/18 19:00 IMPRESSION: 1. Prominent soft tissue swelling peripheral and deep to the nasal bones and the nasal cartilage. Study performed with IV contrast and includes area of enhancement possibly normal or inflamed cartilage and areas of low density possibly pus or simple fluid/mucus. Soft tissue swelling extends in the midline into the nasal cavity. Most prominent anteriorly but causes soft tissue thickening adjacent to the nasal septum. The nasal turbinates are not enlarged. 2. Relative mild sinus disease. No obvious destructive bone changes. 3. Mild prominence of the adenoids. Guidance Fluoroscopy 09/30/18 00:00 IMPRESSION: SUCCESSFUL PLACEMENT OF A 5 FR DUAL LUMEN 27 CM PICC IN THE LEFT BASILIC VEIN. Interventional Vascular Procedure 09/30/18 00:00 IMPRESSION: SUCCESSFUL PLACEMENT OF A 5 FR DUAL LUMEN 27 CM PICC IN THE LEFT BASILIC VEIN. PICC Line Insertion 09/30/18 07:00 IMPRESSION: SUCCESSFUL PLACEMENT OF A 5 FR DUAL LUMEN 27 CM PICC IN THE LEFT BASILIC VEIN. Assessment and Plan - Diagnosis (1) Bacteremia Is this a current diagnosis for this admission?: Yes Plan: Blood cultures are positive for MDR MRSA (2/4 bottles). Repeat cultures (09/25/18) negative Multiple Wound cultures growing MDR MRSA. Echocardiogram completed; no obvious vegetations, however, computer numerical control operator at [facility] is recommending follow up JOE. JOE was negative for vegitations. He does confirm a history of MRSA but denies IV drug use. No heart valves or orthopedic prosthetics present. Patient did initially present in [facility] custody. D/c planning reports patient does have previous drug related charges; therefore will need to keep in-house for completion of antibiotic therapy. Discussed w/ Dr. Garcia, ID. Recommends 2 weeks IV Vancomycin or Daptomycin; end date 10/09 Continue IV Vanc. (2) Nose cellulitis Is this a current diagnosis for this admission?: Yes Plan: Resolved. Now s/p surgical I&D by ENT; drains have been removed. Blood cultures were positive for MDR MRSA. Repeat cultures (09/25/18) are negative. Multiple Wound cultures growing MDR MRSA. Patient was admitted to the medical floor. Continue IV vancomycin for treatment of bacteremia. ENT was consulted; appreciate their assistance. Analgesics as needed. (3) Hypertension Is this a current diagnosis for this admission?: Yes Plan: Improved Continue amlodipine 10 mg qHS and lisinopril 5 mg nightly. (4) Facial pain, acute Is this a current diagnosis for this admission?: Yes Plan: Resolved. Secondary to #1 Tylenol or Motrin for pain (5) Sepsis Qualifiers: Sepsis type: sepsis due to unspecified organism Qualified Code(s): A41.9 - Sepsis, unspecified organism Is this a current diagnosis for this admission?: Yes Plan: Resolved. Sepsis due to gram-positive cocci, present on admission, evidenced by Leukocytosis, elevated lactic acid, elevated bilirubin, fever, tachycardia, and nasal cellulitis with potential abscesses noted on facial CT. Cultures and antibiotics as above. (6) Head ache Is this a current diagnosis for this admission?: Yes Plan: Improved. Tylenol or motrin for pain. As needed fiorecet. - Time Time Spent with patient: 15-24 minutes Medications reviewed and adjusted accordingly: Yes Anticipated discharge: Home Within: within 24 hours
[2018-10-08] MEDS: AMLODIPINE BESYLATE 10 MG TABLET PO SCH (22:04)
[2018-10-09] MEDS: HEPARIN SOD (PORCINE) 5,000 UNIT/ML 1 ML VIAL SUBCUT SCH (05:32)
[2018-10-09] MEDS: VANCOMYCIN HCL 1,500 MG in DEXTROSE 5%-WATER 250 ML IV SCH (05:41)
[2018-10-09] MEDS: FAMOTIDINE 20 MG TABLET PO SCH (09:17)
[2018-10-09] MEDS: LISINOPRIL 5 MG TABLET PO SCH (09:17)
[2018-10-09] MEDS: FLUTICASONE NASAL SPRAY 50 MCG/SPRY 120 SPRAY/16 GM NASL SCH (09:17)
[2018-10-09] MEDS: NORMAL SALINE 10 ML SDV (SCHEDULED) IV SCH (09:17)
[2018-10-09] MEDS: LACTOBACILLUS ACIDOPHILUS 250 MG TAB PO SCH (09:17)
[2018-10-09] MEDS: MUPIROCIN 2% OINTMENT 22 GM TP SCH (09:18)
[2018-10-09] MEDS: SODIUM CHLORIDE NASAL SPRAY 44 ML NASL SCH (09:18)
[2018-10-09] MEDS: DOCUSATE SODIUM 100 MG CAPSULE PO SCH (09:19)
[2018-10-09 09:47] VITALS: BP 140/90
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
== END 2018-10-09 11:17 | disposition home health service (06) | DRG 872 ==
LOC: ER 17:14 → EH 23:39 → 5 09-24 02:15 → 4W 09-25 18:26 → 5 09-30 09:53
PROVIDERS: ADMIT Emergency Medicine; ATTEND Emergency Medicine
PROC: 02HV33Z Insertion of Infusion Device into Superior Vena Cava, Percutaneous Approach (ICD-10-PCS; 2018-09-30)
PROC: 099 Ear, Nose, Sinus, Drainage (ICD-10-PCS; principal; 2018-10-02)
DX: A41.9 Sepsis, unspecified organism (principal); J34.0 Abscess, furuncle and carbuncle of nose; B95.62 Methicillin resistant Staphylococcus aureus infection as the cause of diseases classified elsewhere; I10 Essential (primary) hypertension; R51 Headache; X58.XXXA Exposure to other specified factors, initial encounter; F17.200 Nicotine dependence, unspecified, uncomplicated; Z86.14 Personal history of Methicillin resistant Staphylococcus aureus infection; Z82.49 Family history of ischemic heart disease and other diseases of the circulatory system
CPT/HCPCS: 160; 36415; 36569; 70487; 71046; 76937; 77001; 80048; 80053; 80202; 82565; 82803; 83036; 83605; 83735; 85025; 85027; 85610; 87040; 87070; 87075; 87077; 87186; 87205; 93306; 96360; 96361; 96365; 96367; 96375; 99285; J0295; J0330; J0360; J1100; J1642; J1644; J1885; J2001; J2185; J2250; J2270; J2405; J2704; J3010; J3370; J3490; J7050; J7060; J7120; S0028